=== PATIENT | male | born 1990 | race Caucasian/White ===

== ENCOUNTER 2017-04-30 15:22 | Inpatient (IN) | payer MEDICAID ==
[~2017-04-30] VITALS: Ht 172.7 cm; Wt 95.5 kg
--- NOTE | 2017-04-30 15:40 | ED.REPORT ---
HPI-General Illness Date of Service Apr 30, 2017 ED Provider: Dr. Collazo Pt is a 26 year old male with a hx of Bipolar and Schizophrenia and presenting to the ED via law enforcement for a mental health evaluation. His parents report that he is paranoid, and has been drinking his own urine. When his father inquired about this, the pt stated that it was tea. Pt denies any suicidal or homicidal ideation or visual or auditory hallucinations. Pt states that today was just a normal day. He was trying to make an appointment to get his shot for eczema and states that his father was giving false information to the doctor on the phone and the pt got nervous so he went to the store and got a drink. His parents report that he has not been taking his antipsychotic medications. Nursing Notes Stated Complaint: DELUSIONAL Chief Complaint: Delusional Nursing Notes Reviewed: Yes Allergies: Coded Allergies: haloperidol (Verified Allergy, Unknown, 04/30/17) "when I wake up it makes me blind" General Time Seen by MD: 15:39 Chief Complaint Other (Mental health evaluation) Hx Obtained From: Patient, Other family... (Mother, Father) Arrived By: Police Sudden in Onset?: Yes Symptom Duration: Since onset Severity: Current: No pain currently Severity: Maximum: No pain Recent Healthcare: No recent doctor visit, No recent hospitalization Similar Sx Previous: No Past Medical History Past Medical History Eczema Bipolar Schizophrenia Past Surgical History denies Smoking History Unknown if Ever Smoker Ambulatory Status Independent Review of Systems Unable to Obtain ROS Mental status Full Review of Systems Psychiatric: Reports: Delusional, Denies: Hallucinations, auditory, Hallucinations, visual, Homicidal ideation , Suicidal ideation Physical Exam Nursing note and vitals reviewed. Constitutional: Well-developed, well-nourished. Not diaphoretic. Head: Normocephalic and atraumatic. Mouth/Throat: Oropharynx is clear and moist. No oropharyngeal exudate. Eyes: EOM are normal. Pupils are equal, round, and reactive to light. Neck: Supple, no tracheal deviation. Cardiovascular: Normal rate, regular rhythm. Equal and intact distal pulses throughout. Pulmonary/Chest: Effort normal and breath sounds normal. No respiratory distress. Abdominal: Soft. No distension. There is no tenderness, rebound, or guarding. Bowel sounds present. Musculoskeletal: Range of motion grossly intact, moving all extremities. No edema or tenderness appreciated. Neurological: AOx3. Grossly nonfocal exam. Strength and sensation intact and equal to bilateral upper and lower extremities. Skin: Warm and dry. Well healed excoriations around chest. Psychiatric: Not suicidal or homicidal. No auditory or visual hallucinations. Vital Signs Vital Signs Date Time Temp Pulse Resp B/P Pulse Ox O2 Delivery O2 Flow Rate FiO2 04/30/17 19:05 115 14 134/107 100 Room Air 04/30/17 15:53 125 18 150/94 98 Room Air Initial VS: Reviewed Interpretation & Diagnostics Lab Results Interpretation Result Diagram: 04/30/17 1612 04/30/17 1612 Test 04/30/17 16:12 04/30/17 16:20 White Blood Count 7.5th/mm3 (3.8-10.1) Red Blood Count 4.81mil/mm3 (4.40-5.80) Hemoglobin 15.1g/dL (13.8-17.2) Hematocrit 44.1% (41.0-50.0) Mean Corpuscular Volume 91.7fL (81-100) Mean Corpuscular Hemoglobin 31.4pg (27.0-35.0) Mean Corpuscular Hemoglobin Concent 34.2% (32.0-37.0) Red Cell Distribution Width 13.5% (12.3-15.4) Platelet Count 197bil/L (150-400) Neutrophils (%) (Auto) 61.0% (40-74) Lymphocytes (%) (Auto) 21.6% (14-46) Monocytes (%) (Auto) 13.4% (4-12) Eosinophils (%) (Auto) 2.8% (0-5) Basophils (%) (Auto) 0.9% (0-3) Sodium Level 140mEq/L (134-144) Potassium Level 3.7mEq/L (3.5-5.2) Chloride Level 102mEq/L (97-108) Carbon Dioxide Level 21mmol/L (18-29) Blood Urea Nitrogen 5mg/dL (6-20) Creatinine 0.77mg/dL (0.76-1.27) Estimat Glomerular Filtration Rate 131mL/min (>59) Glucose Level 107mg/dL (60-99) Calcium Level 9.6mg/dL (8.5-10.1) Total Bilirubin 0.4mg/dL (0.0-1.2) Aspartate Amino Transf (AST/SGOT) 26U/L (0-50) Alanine Aminotransferase (ALT/SGPT) 26U/L (0-44) Alkaline Phosphatase 59U/L (25-150) Total Protein 7.5g/dL (6.4-8.4) Albumin 4.5g/dL (3.4-5.0) Thyroid Stimulating Hormone (TSH) 1.580uIU/mL (0.450-4.500) Hold Urine Received (Received) Re-Eval/Medical Decision Med Decision/Clinical Course 26-year-old male presenting to the ED with bizarre behavior, concern for acute psychosis. Currently hemodynamically stable with no somatic complaints. Laboratory studies reviewed; no obvious abnormality that would account for his current presentation. After discussion with the mental health workers, decision was made to admit the patient for further management and evaluation. Time of Eval: 17:59 Patient Status: Condition improved Re-Evaluation/Progress Note: Discussed plan for admission. Consultation : Call Returned at: 21:51 Proof Reader: Will see patient, Agrees with plan, Accepts admit Note: [facility] organized admission to the hospital. Counseled Regarding: Diagnosis, Lab results, Need for admission Discharge & Departure Primary Impression: Acute psychosis Disposition: ADMITTED TO HOSPITAL Discharge Condition All VS Reviewed: Yes Condition: Improved Scribe Attestation Portions of this note were transcribed by Piotr Collins. I, Dr. Collazo personally performed the history, physical exam and medical decision-making; I reviewed and confirmed the accuracy of the information in the transcribed note. Signed by: Srinivas Woodson, 04/30/2017 at 2230. Kash Collazo MD Apr 30, 2017 15:40 PIOTR COLLINS Apr 30, 2017 17:31
[2017-04-30 15:53] VITALS: BP 150/94; PULSE 125; RESP 18; O2SAT 98
[2017-04-30 16:27] LABS: BASOPHILS % (AUTO) 0.9 % (0-3); EOSINOPHILS % (AUTO) 2.8 % (0-5); MONOCYTES % (AUTO) 13.4 % (4-12); Mean Corpuscular Hemoglobin 31.4 pg (27.0-35.0); Mean Corpuscular Volume 91.7 fL (81-100); Platelet Count 197 bil/L (150-400)
[2017-04-30 19:05] VITALS: BP 134/107; PULSE 115; RESP 14; O2SAT 100
[2017-04-30] MEDS ORDERED: LORazepam 2 mg Tablet PO ONE (21:55)
[2017-04-30] MEDS ORDERED: OLANZapine Zydis ODT 5 mg Tablet ONE (22:11)
[2017-04-30] MEDS ORDERED: OLANZapine Zydis ODT 5 mg Tablet PO ONE (22:15)
[2017-04-30] MEDS ORDERED: OLANZapine Zydis ODT 5 mg Tablet PO SCH (22:20)
[2017-04-30] MEDS ORDERED: OLANZapine Zydis ODT 5 mg Tablet PO PRN (22:20)
[2017-04-30] MEDS ORDERED: Magnesium Hydroxide 10 mL Oral Concentration PO PRN (22:20)
[2017-04-30] MEDS ORDERED: Alum-Mag Hydrox-Simeth 30 mL Suspension PO PRN (22:20)
[2017-04-30] MEDS ORDERED: LORazepam 2 mg Tablet PO PRN (22:20)
[2017-04-30] MEDS ORDERED: Benzocaine-Menthol Lozenge 2/Pkg PO PRN (22:20)
--- NOTE | 2017-04-30 22:45 | NUR ---
Nurses Admission Note 26 year old involuntary male brought to the ER by police due to increasing paranoia at home believing his father was poisoning his food and medications. Patient has lost approximately 30lbs, has not been sleeping or bathing. Patient has had several previous psychiatric hospitalizations in [facility],has been followed by [facility] locally and has been taking Risperdal injections biweekly. Patient arrived on the unit confused,anxious and tremulous. He had received IM Zyprexa 10mg and Ativan 2 mg in the ER after refusing PO. Patient believed his neck rash was caused by eating "ramen noodles". Patients' thoughts were scattered,tangential initially but later stated he did well with a Risperdal injections "that is why I was afraid of the other shots." Patient changed into scrubs and retired to bed. Patient will sign paperwork in the am. He will be monitored q 15min. checks for safety and support.
--- NOTE | 2017-05-01 03:12 | NUR ---
ADMIT NOC OBS [id number] Pt arrived from our ER and changed into scrubs. He requested to go to bed and wait until morning to sign paperwork. Asleep 2330. Observed Q15 as ordered.
--- NOTE | 2017-05-01 04:15 | NUR ---
Night [id number] Assumed care of pt at 2315 after admission. Pt appears to be sleeping in bed without s/sx of distress and has no behavioral issues noted at this time. Continues to monitor for mood changes, emotional well being, and q15min. Care continues.
[2017-05-01 10:17] VITALS: BP 126/78; PULSE 126; RESP 18
--- NOTE | 2017-05-01 12:39 | NUR ---
[facility] Day Shift Pt maintained behavioral control throughout the shift. Pt affect appears mostly flat, somewhat brighter when engaged with staff and peers. Pt appears internally preoccupied, often appearing unfocused and distracted during conversations. Pt spends most of the shift wandering the unit and occasionally resting in his room. Pt is appropriate with staff and peers when active on the unit, but is not social. Pt attended community meeting in the AM and participated lightly in AM group activity. Pt has attended all meals at this time and has eaten approx 80% of all meals.
--- NOTE | 2017-05-01 13:11 | NUR ---
nursing note dayshift S)"I feel like a zombi what ever medication I got last night" A) good eye contact, desired to know how and when he can be discharged, "I will take my medication" "I only like shots it is what works for me" out in milieu most of shift, ate meals dressed in scrubs, no complaints, minimal interaction with others, pleasant and cooperative on approach A) no delusional behavior noted, pleasant cooperative P) monitor behavior and encourage participation in treatment
[2017-05-01] MEDS ORDERED: LORazepam 1 mg Tablet PO PRN (15:20)
--- NOTE | 2017-05-01 16:11 | HP ---
[address] [address] HISTORY AND PHYSICAL PATIENT: LULU SMITH : 1990 MR#: [id number] ADMIT: 04/30/2017 JOB ID: [id number] IDENTIFICATION: Client is a 26-year-old white male with reported history of bipolar mood disorder with psychosis. He is reportedly living with his father and his father's girlfriend for the past year and a half. Prior to that he was living with his biological mother in [facility]. Client reports he is on disability and lives in [place]. REASON FOR ADMISSION: Client reports "I was tricked." Hospital reports that the client had been off of his IM neuroleptic for months and was having increasing threatening behaviors, delusions and disorganization. HISTORY OF PRESENT ILLNESS: The patient presents today on a 72 hour involuntary treatment hold from the emergency department for evaluation and treatment of psychosis. I met with him for a 60 minute evaluation and reviewed course and records kept by [facility]. Client's main issue is psychosis. The condition has reportedly been present for several years and at present is of a severe intensity manifesting with paranoid delusions, flight of ideas, poor insight and threatening behaviors. It was reportedly made worse by client not taking his bimonthly shot of Risperdal Consta since September 2016. Since that time, he has apparently been having a slow but gradual recurrence of an acute psychotic episode. It also appears to be made worse by interpersonal relationship conflicts. He currently describes his active conflicts between his father and his father's girlfriend. He reports that the symptoms are improved when he takes Risperdal on a regular basis. He is currently presenting with signs of marked impairment in reality testing, judgment, insight and coping. Cognitively he appears to be intact. He is having a very difficult time with impulse control. Client categorically denied psychiatric review of systems or physical review of systems. However, the client is here in an involuntary basis and believes that anything he says can and will be used against him in a court of law. As a result, he is a very poor historian. PAST MEDICAL HISTORY: Client states he takes Risperdal Consta. Did not know the dose, two times per month, last in September. ALLERGIES: 1. HALDOL. He states he wakes up blind. 2. SEROQUEL and ABILIFY. He states he tends to get tremors, sweating and nausea. ILLNESSES: 1. Asthma. 2. Eczema. FAMILY MEDICAL HISTORY: Client refused. PAST PSYCHIATRIC HISTORY: Client refused. PSYCHOSOCIAL HISTORY: Client refused. The client refused to share client's information about trauma, substance abuse, lethality, relationship or legal history. He would not give us his father's name and number and there was no way we could collaborate information at this time. VITAL SIGNS: 126/78, respirations 18, pulse 126. Physical exam reviewed from the ED and essentially normal. LABORATORIES: CBC, liver, electrolytes, thyroid normal. UDS positive for THC. MENTAL STATUS EXAMINATION: Client neatly dressed. He had poor eye contact and appeared quite tense. His behavior was withdrawn. His attitude was suspicious, guarded and withholding. Speech was normal rate and rhythm. Mood was suspicious. Affect congruent with high intensity. Thought process: Client was either unwilling or unable to relate a coherent history. He did not appear to be responding to internal stimuli but did have flight of ideas. His thought process was markedly concrete with black and white thinking. Thought content: Themes for paranoia and persecution. He believes his father may be poisoning him. He described what sounds like olfactory hallucinations complaining of cigarettes smelling like urine, medications smelling odd and boots smelling like coffee. He denied suicidal or homicidal ideation. He had denied auditory hallucinations. He is alert and oriented to person, place and date. Memory and attention unable to assess due to non participation. Insight and judgment poor. Impulse control highly contained, yet rigid, as having a difficult time handling impulses of fear. Reality testing is markedly impaired. Competence to handle stress is currently markedly impaired. IMPRESSION: The patient is a 26-year-old white male, who was admitted on a 72 hour involuntary treatment hold after his father brought him to the emergency department for an evaluation. He apparently been off his Risperdal Consta for several months. He reported to have a history of bipolar mood disorder with psychosis that appears to have been gradually manifesting itself as he has been off his medications. In addition to stopping his medications, he also has been ingesting THC which is also likely contributing to the current paranoia, delusion and disorganized thought. Client is not willing to share information or give us information to contact family at this point. As a consequence I have little understanding of the psychology or social situation. DIAGNOSIS: AXIS I Schizoaffective disorder. AXIS II Defer. AXIS III None. AXIS IV Unknown. AXIS V Current global assessment of functioning equal to 30. PLAN: Recommend client be admitted to our unit and be provided with a high degree of safety through the structure and active adult engagement he will receive here. Will have him participate in one-to-one unit and group activities focused on improving coping skills, reality based thinking and coming up with a safety plan and treatment plan should psychosis return as an outpatient. Client is on a 72 hour involuntary treatment hold. He will have a chance to talk with his enamel burner in the morning and the hand tube winder on Saturday. At this point, given the intensity of the symptoms and the lack of information, I will pursue a 14 day involuntary treatment hold. Will attempt to contact the family and previous treatment facilities for more information as soon as were able to identify these.
--- NOTE | 2017-05-01 18:39 | NUR ---
Nurses Note Evening "I would like to go home Saturday." Patient had been sleeping most of the evening until after dinner. He refused dinner stating he usually eats oatmeal as an evening meal and accepted juices and cheese with apple sauce.Patient denied troubled thoughts,voices or feelings of self harm. He is receptive to PO Risperdal until he receives Risperdal Consta IM. Patient talked about problems with his father and his girlfriend especially when they drink. Patient would like to investigate other living arrangements when he leaves here,note given to transplant case manager. Will maintain q 15min. checks for safety and support. Addendum: 05/01/17 at 1853 by DEANNE DYKES RN Amended: Links added. Addendum: 05/01/17 at 2210 by DEANNE DYKES RN Nurses Note Evening Patient requested his HS medication at 1930 of Risperdal 4 mg. He attended wrap-up and while standing fainted in the dining room. Vital signs taken while sitting on bed. JR=417/64,114.sitting,and upon standing he fainted again. Patient was resistive to drinking fluids.Had to be strongly encouraged to do so. He reluctantly drank a 240cc of water from the bathroom sink. Patient remains guarded and paranoid regarding food and fluids, had only minimal amounts of both today and no dinner.FC=483 BP=98/62,P=109 Lying, QI=237/67,P=122 sitting, no recorded BP on automatic machine while standing with a pulse spyz=720. An EKG 12 lead was done resulting in sinus tachycardia as well as a nursery helper which showed HR in the 150's with ambulation but rebounded to the 80's within a minute. Patient drank additional 474cc of soda and remained cooperative but felt he was getting too much attention and "just want to sleep." Will maintain q 15min. checks for safety and support,encouraged patient to use call nix if toileting tonight. notified of above.
[2017-05-01] MEDS: risperiDONE 2 mg Tablet PO SCH (19:32)
--- NOTE | 2017-05-01 20:01 | NUR ---
manager food beverage/Counselor: S: "I don't want to give any information." O: Patient slept 6.5 hours last night per staff. Patient denies S/I and H/I. He denies auditory and visual hallucinations. Patient would not provide any additional information due to "waiting for the 72 hours to be done first." A: Patient is uncooperative, guarded, suspicious, paranoid, withdrawn, poor insight, poor judgment. P: Follow care plan, coordinate with out-patient providers.
--- NOTE | 2017-05-02 05:23 | NUR ---
aerospace assembler [id number] Assumed care of patient at 2300 with pt appearing asleep in bed without s/sx of distress. Pt had no bizarre or behavioral issues noted at this time. Continue to monitor for mood changes, emotional well being, and q15min checks for safety. Care continues.
--- NOTE | 2017-05-02 12:34 | NUR ---
nursing note day shift A) pt would not jason this literary writer permission to come into room, jumped from bed and ran to doorway when I knocked, I asked if he was dizzy getting up so fast " I am keeping that info to myself" though appeared steady, guarded, refused extra fluids " I only drink right before my meals" "I already drank extra water today" briefly out in milieu, ate meals, did attend community meeting but gave guarded responses A) paranoid, guarded, cooperative P) monitor medication effectiveness and encourage participation in treatment
--- NOTE | 2017-05-02 12:46 | PCM.PNPSY ---
Subjective Date of Service May 02, 2017 Subjective I spent 30 minutes both reviewing treatment plan with our clinical team, interviewing the patient and providing supportive/educational psychotherapy. I spent more than 50% of the time counseling the patient. I reviewed the treatment plan with the him and discussed options available including the potential risks, benefits and side effects. Maicol reports a marked improvement in thought organization and mood stability. Staff reports that he has been isolating and appearing quite paranoid. He has been participating poorly in one-to-one unit and group activities. He slept 8 hours and denies depression kong or psychotic symptoms review. He denies suicidal ideation or homicidal ideation and states there is just been a big misunderstanding. He denies medication side effects today. Last night he experienced a period of hypotension after taking 4 mg of Risperdal. He believed that he was dehydrated. We talked about decreasing the dose to 3 mg at in the evening and he agreed. He was able to identify his medications and what they were used to treat. Current Medications Current Medications Lorazepam 2 mg ONCE ONCE IM Last administered on 04/30/17 22:55; Admin Dose 2 MG; Start 04/30/17 at 22:30; Stop 04/30/17 at 22:31; Status DC Olanzapine 10 mg ONCE ONCE IM Last administered on 04/30/17 22:55; Admin Dose 10 MG; Start 04/30/17 at 22:30; Stop 04/30/17 at 22:31; Status DC Risperidone 4 mg HS PO Last administered on 05/01/17 19:32; Admin Dose 4 MG; Start 05/01/17 at 21:00 Mental Status Exam Appearance: Neat/well groomed Attitude: Guarded Behavior: Overtly anxious Affect: Restricted, Blunted, Flat Mood: Fearful Thought Process/Associations: Other (poverty of thought) Speech Production: Soft Speech Rate: Normal Speech Articulation: Normal Thought Content: Negativistic, Ideas of Reference, Perseveration Danger to Self/Suicidal Ideati: None Danger to Others: None Delusions: Paranoid (Endorses) Hallucinations: Other (patient a poor historian and is not telling us what he is experiencing internally) Consciousness: Hyper-vigilant Orientation: Person, Place, Date, Situation Memory: Grossly Intact Estimate Intellectual Function: Below Average Basis for IQ estimate: Awareness current events, Word use/vocabulary, Educational history Attention/Concentration & Cogn: Impaired Cognitive Testing Method: Abstract Reasoning during interview, Proverb interpretation, Serial computations Insight: Limited Judgement: Limited Result Diagram: 04/30/17 1612 04/30/17 1612 Mental Health Plan The patient is a 26-year-old white male, who was admitted on a 72 hour involuntary treatment hold after his father brought him to the emergency department for an evaluation. He apparently had been off his Risperdal Consta for several months. He is reported to have a history of bipolar mood disorder with psychosis that appears to have been gradually manifesting itself as he has been off his medications. In addition to stopping his medications, he also has been ingesting THC which is also likely contributing to the current paranoia, delusion and disorganized thought. Client is not willing to share information or give us information to contact family at this point. As a consequence I have little understanding of the psychology or social situation. [place] DIAGNOSIS: AXIS I Schizoaffective disorder. AXIS II Defer. AXIS III None. AXIS IV Unknown. AXIS V Current global assessment of functioning equal to 30. Medications Treatments Patient is being provided with a high degree of safety through our unit structure and active adult engagement provided by our mental health professionals, mental health technicians, psychiatric nurses and myself. We are focusing on developing improved coping skills and identifying stressors that may have led to current episode. We will attempt to: * Integrate into therapeutic groups, milieu and individual therapy. * Maintain in a closely monitored and structured unit * Provide low-stimulation environment * Obtain collateral data to assist in treatment planning * Assess degree of lability of affect and impulse control * Complete safety plan * Decrease frequency of relapse and need for re-hospitalization * Denies thoughts of harm to self and/or others * Establish a consistent sleep pattern * Medication effective in stabilization of mood and/or thought process * Reduce the risk of imminent harm to self and/or others by providing a safe environment * Tolerates medication without side effects Patient will be on the following psychiatric medications: Change Risperdal to 3 mg at bedtime Education: Educate patient about recreational drug use as an etiology Educate about metabolic etiologies related to obesity Patient's legal status Patient is on a 72 hour involuntary treatment hold. Patient will be given the opportunity to talk to her tipple operator and the treer Saturday Anticipated number of hospital days to achieve above goals: 14 Disposition: Home Alex Robles MD May 02, 2017 12:45
[2017-05-02 16:04] VITALS: BP 103/65; PULSE 123; RESP 16
[2017-05-02] MEDS: risperiDONE 2 mg Tablet PO SCH (19:16)
--- NOTE | 2017-05-02 21:54 | NUR ---
Nursing Noc Pt received scheduled Risperdal at 191, offered prn Ativan and Ambien but patient refused stating he has had all his meds. Medications wasted with SANDY Calderon per routine.
--- NOTE | 2017-05-03 02:14 | NUR ---
Observations 1900 to 0700 Pt did not attend wrap up group. Pt ate a snack. Pt does not interact with peers. Pt stands around staring into nurses station and when staff contact pt behaves bizarrely. Pt appears extremely paranoid. Pt maintained behavioral control. Pt appeared asleep at 0200. Pt respirations were observed when asleep. Staff completed 15 min close observations as ordered.
--- NOTE | 2017-05-03 05:09 | NUR ---
Nursing Noc Pt thoughts appear very paranoid and tangential. Noted to ask for something then not want to accept it. Pt refusing any PRNs but was willing to accept prescribed medication. Pt confused as to time. Noted to believe it was day time while it is clearly dark on unit and outside windows. Pt making requests for different snack with an inappropriate level of urgency. Continuing to monitor mood behavior and emotional state. CP
--- NOTE | 2017-05-03 11:12 | NUR ---
Nursing Note [id number] Behavior S/O: Pt out in milieu most of the day. Pleasant with staff & peers. Conversation clear & organized but brief & superficial. Eye contact is poor. Pt seen staring into space frequently. Pt attempted to play a game with peer, but unexpectedly put game away in the middle. Pt in court this morning. He interrupted the shank faker several times, but was easily redirected. He has been continued on a 72 hour hold until Sunday, May 07, 2017. A: Pt appears to be internally preoccupied. P: Provide supportive environment. Monitor medications & effects.
--- NOTE | 2017-05-03 13:21 | PCM.PNPSY ---
Subjective Date of Service May 03, 2017 Subjective I spent 30 minutes both reviewing treatment plan with our clinical team, interviewing the patient and providing supportive/educational psychotherapy. I spent more than 50% of the time counseling the patient. I reviewed the treatment plan with the him and discussed options available including the potential risks, benefits and side effects. Maicol reports feeling less paranoid and feels safe here on the unit. Staff reports that he has been isolating but state that he appears less paranoid. He has been participating poorly in one-to-one unit and group activities. He slept 2 hours at night but took multiple naps during the day and denies depression kong or psychotic symptoms review. He denies suicidal ideation or homicidal ideation and states there is just been a big misunderstanding. He denies medication side effects today. He was able to identify his medications and what they were used to treat. Current Medications Current Medications Risperidone 4 mg HS PO Last administered on 05/02/17t 19:16; Admin Dose 4 MG; Start 05/01/17 at 21:00 Mental Status Exam Appearance: Neat/well groomed Attitude: Guarded Behavior: No unusual behavior Affect: Restricted, Blunted, Flat Mood: Dysthymic Thought Process/Associations: Logical/Sequential, Goal Directed Speech Production: Soft Speech Rate: Normal Speech Articulation: Normal Thought Content: Negativistic, Ideas of Reference Danger to Self/Suicidal Ideati: None Danger to Others: None Delusions: Paranoid (Endorses) Hallucinations: Other (patient a poor historian and is not telling us what he is experiencing internally) Consciousness: Hyper-vigilant Orientation: Person, Place, Date, Situation Memory: Grossly Intact Estimate Intellectual Function: Below Average Basis for IQ estimate: Awareness current events, Word use/vocabulary, Educational history Attention/Concentration & Cogn: Impaired Cognitive Testing Method: Abstract Reasoning during interview, Proverb interpretation, Serial computations Insight: Limited Judgement: Limited Result Diagram: 04/30/17 1612 04/30/17 1612 Mental Health Plan The patient is a 26-year-old white male, who was admitted on a 72 hour involuntary treatment hold after his father brought him to the emergency department for an evaluation. He apparently had been off his Risperdal Consta for several months. He is reported to have a history of bipolar mood disorder with psychosis that appears to have been gradually manifesting itself as he has been off his medications. In addition to stopping his medications, he also has been ingesting THC which is also likely contributing to the current paranoia, delusion and disorganized thought. Client is not willing to share information or give us information to contact family at this point. As a consequence I have little understanding of the psychology or social situation. Today he showed a marked decrease in anxiety and paranoia. He was much more Open and engaged in our conversation [place] DIAGNOSIS: AXIS I Schizoaffective disorder. AXIS II Defer. AXIS III None. AXIS IV Unknown. AXIS V Current global assessment of functioning equal to 35. Medications Treatments Patient is being provided with a high degree of safety through our unit structure and active adult engagement provided by our mental health professionals, mental health technicians, psychiatric nurses and myself. We are focusing on developing improved coping skills and identifying stressors that may have led to current episode. We will attempt to: * Integrate into therapeutic groups, milieu and individual therapy. * Maintain in a closely monitored and structured unit * Provide low-stimulation environment * Obtain collateral data to assist in treatment planning * Assess degree of lability of affect and impulse control * Complete safety plan * Decrease frequency of relapse and need for re-hospitalization * Denies thoughts of harm to self and/or others * Establish a consistent sleep pattern * Medication effective in stabilization of mood and/or thought process * Reduce the risk of imminent harm to self and/or others by providing a safe environment * Tolerates medication without side effects Patient will be on the following psychiatric medications: Risperdal to 3 mg at bedtime Education: Educate patient about recreational drug use as an etiology Educate about metabolic etiologies related to obesity Patient's legal status Patient is on a 72 hour involuntary treatment hold. The hearing was deferred until next Saturday. Anticipated number of hospital days to achieve above goals: 4 Disposition: Home Alex Robles MD May 03, 2017 13:21
--- NOTE | 2017-05-03 18:30 | NUR ---
[facility] Day Shift Pt maintained behavioral control throughout the shift. Pt affect appears mostly flat, somewhat brighter when engaged with staff and peers. Pt appears internally preoccupied, often appearing unfocused and distracted during conversations. Pt appears more distracted and paranoid this shift. Pt spends most of the shift wandering the unit and occasionally resting in his room. Pt is appropriate with staff and peers when active on the unit, but is not social. Pt did not attend afternoon group activity. Pt has attended all meals at this time and has eaten approx 100% of all meals.
[2017-05-03 19:00] VITALS: BP 113/68; PULSE 140; RESP 18
[2017-05-03] MEDS: risperiDONE 2 mg Tablet PO SCH (20:12)
--- NOTE | 2017-05-03 20:13 | NUR ---
equipment manager/Counselor: S: "I don't want to talk about my personal stuff." O: Patient only slept 2 hours last night per staff. Patient denies S/I and H/I. He denies auditory and visual hallucinations. Patient would not provide any additional information. A: Patient is uncooperative, guarded, suspicious, paranoid, restricted affect, limited insight, limited judgment. P: Follow care plan, coordinate with out-patient providers.
--- NOTE | 2017-05-03 20:38 | NUR ---
NURSING NOTE [id number] Mood: "ordinary" Affect: paranoid, guarded Behavior: isolating to his room this shift, in bed. Pt. declined to eat dinner this evening and stated "I prefer to only eat 2 meals a day." He did ask to drink orange juice X 2 (240 mls consumed) and ate a cheese stick. When asked if he is feeling paranoid about eating the food here he abruptly stated: "I don't want to talk about it". He was med compliant tonight. Thought processes: pt. stated "I don't want to talk too much" when asked about his thought content. He denied AH/VH/SI/HI but some of his mannerisms are bizarre and his comments indicate he is paranoid and could be responding to internal stimuli. Pt. made a comment about the food here being "laced with chloroform" and laughed nervously when this movie writer provided reassurance, stating "I guess I was just kidding, haha", then put both of his hands around his throat as if to simulate choking and laughed again. Pt's speech is slightly pressured and stilted.
--- NOTE | 2017-05-04 06:18 | NUR ---
Night [id number] Pt did not participate in wrap up group, but took all meds without issues noted. Pt continues with paranoia and did not snack;however, he requested orange juice and thanked staff for it. Pt slept 6hrs interrupted without s/sx of distress. Continue to monitor for mood changes, emotional wellbeing, and q15min checks for safety. Care continues.
--- NOTE | 2017-05-04 12:33 | NUR ---
Behavior Pt "edgy" today. When I checked on him in his room, he answered the door and stated, "hold on let me put water on my face"... then states, "Is it time for my Risperadol shot?" Adv pt I was just checking on him and asked if he needed anything. Pt noted to have packing in his left ear and packing in his right nostril. Pt states he had an ear infection and that's why he has packing in ear. He states he was bleeding this morning and that's why packing was in. Appropriate with other pts. Care ongoing. Addendum: 05/04/17 at 3818 by JOURDAN SANCHEZ RN This afternoon patient pacing up and down halls. Still remains withdrawn and skeptical. He did request Prune juice as he stated his stomach hurt after eating turkey sandwhich at lunch. Prune juice handed to him, but he just looked at it and asked if we can put it in the fridge for him. Care ongoing.
--- NOTE | 2017-05-04 13:08 | PCM.PNPSY ---
Subjective Date of Service May 04, 2017 Subjective I spent 30 minutes both reviewing treatment plan with our clinical team, interviewing the patient and providing supportive/educational psychotherapy. I spent more than 50% of the time counseling the patient. I reviewed the treatment plan with the him and discussed options available including the potential risks, benefits and side effects. Maicol reports feeling less paranoid and feels safe here on the unit. Staff reports that he has been isolating but state that he appears less paranoid. He has been participating poorly in one-to-one unit and group activities. He slept 6 hours at night but took multiple naps during the day and denies depression kong or psychotic symptoms review. He denies suicidal ideation or homicidal ideation and states there is just been a big misunderstanding. He denies medication side effects today. He was able to identify his medications and what they were used to treat. Mental Status Exam Appearance: Neat/well groomed Attitude: Guarded Behavior: No unusual behavior Affect: Restricted, Blunted, Flat Mood: Dysthymic Thought Process/Associations: Logical/Sequential, Goal Directed Speech Production: Soft Speech Rate: Normal Speech Articulation: Normal Thought Content: Negativistic, Ideas of Reference Danger to Self/Suicidal Ideati: None Danger to Others: None Delusions: Paranoid (Endorses) Hallucinations: Other (patient a poor historian and is not telling us what he is experiencing internally) Consciousness: Hyper-vigilant Orientation: Person, Place, Date, Situation Memory: Grossly Intact Estimate Intellectual Function: Below Average Basis for IQ estimate: Awareness current events, Word use/vocabulary, Educational history Attention/Concentration & Cogn: Impaired Cognitive Testing Method: Abstract Reasoning during interview, Proverb interpretation, Serial computations Insight: Limited Judgement: Limited Result Diagram: 04/30/17 1612 04/30/17 1612 Mental Health Plan The patient is a 26-year-old white male, who was admitted on a 72 hour involuntary treatment hold after his father brought him to the emergency department for an evaluation. He apparently had been off his Risperdal Consta for several months. He is reported to have a history of bipolar mood disorder with psychosis that appears to have been gradually manifesting itself as he has been off his medications. In addition to stopping his medications, he also has been ingesting THC which is also likely contributing to the current paranoia, delusion and disorganized thought. Client is not willing to share information or give us information to contact family at this point. As a consequence I have little understanding of the psychology or social situation. Today he showed a marked decrease in anxiety and paranoia. He was much more Open and engaged in our conversation. He appears to be showing gradual but steady improvement. [place] DIAGNOSIS: AXIS I Schizoaffective disorder. AXIS II Defer. AXIS III None. AXIS IV Unknown. AXIS V Current global assessment of functioning equal to 35. Medications Treatments Patient is being provided with a high degree of safety through our unit structure and active adult engagement provided by our mental health professionals, mental health technicians, psychiatric nurses and myself. We are focusing on developing improved coping skills and identifying stressors that may have led to current episode. We will attempt to: * Integrate into therapeutic groups, milieu and individual therapy. * Maintain in a closely monitored and structured unit * Provide low-stimulation environment * Obtain collateral data to assist in treatment planning * Assess degree of lability of affect and impulse control * Complete safety plan * Decrease frequency of relapse and need for re-hospitalization * Denies thoughts of harm to self and/or others * Establish a consistent sleep pattern * Medication effective in stabilization of mood and/or thought process * Reduce the risk of imminent harm to self and/or others by providing a safe environment * Tolerates medication without side effects Patient will be on the following psychiatric medications: Risperdal to 3 mg at bedtime Education: Educate patient about recreational drug use as an etiology Educate about metabolic etiologies related to obesity Patient's legal status Patient is on a 72 hour involuntary treatment hold. The hearing was deferred until next Saturday. Anticipated number of hospital days to achieve above goals: 3 Disposition: Home Alex Robles MD May 04, 2017 13:08
--- NOTE | 2017-05-04 14:22 | NUR ---
Pitch Worker/Counselor S:"I don't understand what you mean." O:Patient appeared confused at questions, and did not respond when asked about SI, HI, AVH, anxiety or depression. A:Patient was confused about questions and has been wandering the unit all day. He continues to carry all his paperwork with him, and has tissue stuffed up one nostril. He avoids eye contact. He is paranoid and suspicious, with restricted affect. P: Follow care plan and coordinate with outpatient providers.
[2017-05-04] MEDS: risperiDONE 2 mg Tablet PO SCH (19:43)
--- NOTE | 2017-05-04 22:22 | NUR ---
SHAHID 4 hour shift PT very restless for about 1 hour this shahid from [id number]. PT requesting his risperidone early. PT was notably anxious, but is paranoid about meds and refuses to take anything except risperidone. Currently pt is sleeping. Will continue with current POC and monitor for any A/R.
--- NOTE | 2017-05-05 06:11 | NUR ---
Sleep Broken sleep of 6 hours. Pt requested and received orange juice x 2. Pt pleasant upon interaction with staff.
--- NOTE | 2017-05-05 11:18 | PCM.PNPSY ---
Subjective Date of Service May 05, 2017 Subjective I spent 30 minutes both reviewing treatment plan with our clinical team, interviewing the patient and providing supportive/educational psychotherapy. I spent more than 50% of the time counseling the patient. I reviewed the treatment plan with the him and discussed options available including the potential risks, benefits and side effects. Maicol reports feeling less paranoid and feels safe here on the unit. Staff reports that he has been isolating but state that he appears less paranoid. Even though he has improved his paranoia rate remains at a relatively high level. For the first time today he laughed and was able to joke with me. He has been participating poorly in one-to-one unit and group activities. He slept 6 hours at night but took multiple naps during the day and denies depression kong or psychotic symptoms review. He denies suicidal ideation or homicidal ideation and states there is just been a big misunderstanding. He denies medication side effects today. He was able to identify his medications and what they were used to treat. Mental Status Exam Appearance: Neat/well groomed Attitude: Guarded Behavior: No unusual behavior Affect: Flat Mood: Dysthymic Thought Process/Associations: Logical/Sequential, Goal Directed Speech Production: Soft Speech Rate: Normal Speech Articulation: Normal Thought Content: Negativistic, Ideas of Reference Danger to Self/Suicidal Ideati: None Danger to Others: None Delusions: Paranoid (Endorses) Hallucinations: Other (patient a poor historian and is not telling us what he is experiencing internally) Consciousness: Hyper-vigilant Orientation: Person, Place, Date, Situation Memory: Grossly Intact Estimate Intellectual Function: Below Average Basis for IQ estimate: Awareness current events, Word use/vocabulary, Educational history Attention/Concentration & Cogn: Impaired Cognitive Testing Method: Abstract Reasoning during interview, Proverb interpretation, Serial computations Insight: Limited Judgement: Limited Result Diagram: 04/30/17 1612 04/30/17 1612 Mental Health Plan The patient is a 26-year-old white male, who was admitted on a 72 hour involuntary treatment hold after his father brought him to the emergency department for an evaluation. He apparently had been off his Risperdal Consta for several months. He is reported to have a history of bipolar mood disorder with psychosis that appears to have been gradually manifesting itself as he has been off his medications. In addition to stopping his medications, he also has been ingesting THC which is also likely contributing to the current paranoia, delusion and disorganized thought. Client is not willing to share information or give us information to contact family at this point. As a consequence I have little understanding of the psychology or social situation. Today he showed a marked decrease in anxiety and paranoia. He was much more Open and engaged in our conversation. He appears to be showing gradual but steady improvement. He was able to make a Star Wars analogy make a joke and smile. He is working on placement outside of his parents home which I believe would be helpful for his mental health long-term. [place] DIAGNOSIS: AXIS I Schizoaffective disorder. AXIS II Defer. AXIS III None. AXIS IV Unknown. AXIS V Current global assessment of functioning equal to 35. Medications Treatments Patient is being provided with a high degree of safety through our unit structure and active adult engagement provided by our mental health professionals, mental health technicians, psychiatric nurses and myself. We are focusing on developing improved coping skills and identifying stressors that may have led to current episode. We will attempt to: * Integrate into therapeutic groups, milieu and individual therapy. * Maintain in a closely monitored and structured unit * Provide low-stimulation environment * Obtain collateral data to assist in treatment planning * Assess degree of lability of affect and impulse control * Complete safety plan * Decrease frequency of relapse and need for re-hospitalization * Denies thoughts of harm to self and/or others * Establish a consistent sleep pattern * Medication effective in stabilization of mood and/or thought process * Reduce the risk of imminent harm to self and/or others by providing a safe environment * Tolerates medication without side effects Patient will be on the following psychiatric medications: Risperdal to 3 mg at bedtime Education: Educate patient about recreational drug use as an etiology Educate about metabolic etiologies related to obesity Patient's legal status Patient is on a 72 hour involuntary treatment hold. The hearing was deferred until next Saturday. Anticipated number of hospital days to achieve above goals: 3 Disposition: Home Alex Robles MD May 05, 2017 11:18
[2017-05-05 12:48] VITALS: BP 99/70; PULSE 157; RESP 16
--- NOTE | 2017-05-05 15:29 | NUR ---
Day shift note S: "I already talked to the doctor, I'm fine" O: Pt. this am sitting in hallway, pacing, appears anxious A: Pt. appeared withdrawn this am; minimal conversation; pacing and sitting throughout hallway; refused any prn medications P: Continue scheduled medications; encouraged expression of feelings/thoughts.
--- NOTE | 2017-05-05 18:25 | NUR ---
[facility] Day Shift Pt maintained behavioral control throughout the shift. Pt affect appears mostly flat, somewhat brighter when engaged with staff and peers. Pt appears internally preoccupied, often appearing unfocused and distracted during conversations. Pt again appears more distracted and paranoid this shift. Pt spends most of the shift wandering the unit and occasionally resting in his room. Pt is appropriate with staff and peers when active on the unit, but is not social. Pt attended community meeting in the AM. Pt did not attend afternoon group activity. Pt has attended all meals at this time and has eaten approx 100% of all meals.
[2017-05-05] MEDS: risperiDONE 2 mg Tablet PO SCH (20:39)
--- NOTE | 2017-05-06 05:20 | NUR ---
Nursing Noc Pt presents internally occupied, suspicious and paranoid. Slightly more interactive with staff, noted to come to nursing station with request for wrap up group, and or need for snacks. No apparent distress. Monitor behavior/emotional state, quality, times and amount of sleep, use and effect of medication.
[2017-05-06 08:02] VITALS: BP 116/76; PULSE 152; RESP 22
--- NOTE | 2017-05-06 12:44 | PCM.PNPSY ---
Subjective Date of Service May 06, 2017 Subjective I spent 30 minutes both reviewing treatment plan with our clinical team, interviewing the patient and providing supportive/educational psychotherapy. I spent more than 50% of the time counseling the patient. I reviewed the treatment plan with the him and discussed options available including the potential risks, benefits and side effects. Maicol reports feeling less paranoid and that he feels safe here on the unit. However Staff reports that he has been isolating but state that he continues to appear paranoid. He is paranoid about the food the water and the people. As a result at times he gets dehydrated because he is afraid to drink the water. He is frequently gives his tray of food to other people were and he only eats food that has been wrapped. He has been participating poorly in one- to-one unit and group activities. He slept 6 hours at night but took multiple naps during the day and denies depression kong or psychotic symptoms review. He denies suicidal ideation or homicidal ideation and states there is just been a big misunderstanding. He denies medication side effects today. He was able to identify his medications and what they were used to treat. Mental Status Exam Vital Signs Vital Signs Date Time Temp Pulse Resp B/P Pulse Ox O2 Delivery O2 Flow Rate FiO2 05/06/17 08:02 35.5 152 22 116/76 Appearance: Neat/well groomed Attitude: Guarded Behavior: No unusual behavior Affect: Flat Mood: Dysthymic Thought Process/Associations: Logical/Sequential, Goal Directed Speech Production: Soft Speech Rate: Normal Speech Articulation: Normal Thought Content: Negativistic, Ideas of Reference Danger to Self/Suicidal Ideati: None Danger to Others: None Delusions: Paranoid (Endorses) Hallucinations: Other (patient a poor historian and is not telling us what he is experiencing internally) Consciousness: Hyper-vigilant Orientation: Person, Place, Date, Situation Memory: Grossly Intact Estimate Intellectual Function: Below Average Basis for IQ estimate: Awareness current events, Word use/vocabulary, Educational history Attention/Concentration & Cogn: Impaired Cognitive Testing Method: Abstract Reasoning during interview, Proverb interpretation, Serial computations Insight: Limited Judgement: Limited Result Diagram: 04/30/17 1612 04/30/17 1612 Mental Health Plan The patient is a 26-year-old white male, who was admitted on a 72 hour involuntary treatment hold after his father brought him to the emergency department for an evaluation. He apparently had been off his Risperdal Consta for several months. He is reported to have a history of bipolar mood disorder with psychosis that appears to have been gradually manifesting itself as he has been off his medications. In addition to stopping his medications, he also has been ingesting THC which is also likely contributing to the current paranoia, delusion and disorganized thought. Client is not willing to share information or give us information to contact family at this point. As a consequence I have little understanding of the psychology or social situation. Maicol continues to struggle with symptoms of paranoia about the food water and other people on the unit. As a result he has a difficult time participating in the therapy. He agreed to I am Risperdal Consta today. We will start that as we continue to treat him with 3 mg of Risperdal at bedtime. Patient will likely need an additional treatment. He goes to court for part of his 14 day hold tomorrow. I will be petitioning the court for an additional 14 days. [place] DIAGNOSIS: AXIS I Schizoaffective disorder. AXIS II Defer. AXIS III None. AXIS IV Unknown. AXIS V Current global assessment of functioning equal to 35. Medications Treatments Patient is being provided with a high degree of safety through our unit structure and active adult engagement provided by our mental health professionals, mental health technicians, psychiatric nurses and myself. We are focusing on developing improved coping skills and identifying stressors that may have led to current episode. We will attempt to: * Integrate into therapeutic groups, milieu and individual therapy. * Maintain in a closely monitored and structured unit * Provide low-stimulation environment * Obtain collateral data to assist in treatment planning * Assess degree of lability of affect and impulse control * Complete safety plan * Decrease frequency of relapse and need for re-hospitalization * Denies thoughts of harm to self and/or others * Establish a consistent sleep pattern * Medication effective in stabilization of mood and/or thought process * Reduce the risk of imminent harm to self and/or others by providing a safe environment * Tolerates medication without side effects Patient will be on the following psychiatric medications: Risperdal to 3 mg at bedtime Risperdal Consta 50 mg IM 2 times per month first dose 05/06/2017 Education: Educate patient about recreational drug use as an etiology Educate about metabolic etiologies related to obesity Patient's legal status Patient is on a 72 hour involuntary treatment hold. The hearing was deferred until next Saturday. Anticipated number of hospital days to achieve above goals: 14 Disposition: Home Alex Robles MD May 06, 2017 12:44
[2017-05-06] MEDS ORDERED: RISPERIDONE IM ONE (12:45)
--- NOTE | 2017-05-06 15:12 | NUR ---
Nursing days Pt continues paranoid, guarded and anxious. Tachycardic but refuses offered prn medication for anxiety stating "I do not want extra medication. I just want to take Risperdal". BP WNL. Pt continues to refuse meals except for turkey sandwiches and orange juice. Minimal interaction with peers or staff. Addendum: 05/06/17 at 1517 by MARY PAYNE RN Received first dose of Risperdal Consta this afternoon.
--- NOTE | 2017-05-06 15:36 | NUR ---
Insulation Manager/Counselor S/O: Patient stated he needed to speak to his dr regarding a shot (Risperdal Consta) of medication. He is confused by questions regarding SI, HI, etc. and does not answer. A: Patient's mother left her phone number (Alice Rees, ), in case staff needs to get a hold of her. Patient has been paranoid and wandering the hallways. Flat and guarded. P:Follow care plan and coordinate with outpatient providers.
--- NOTE | 2017-05-06 17:00 | NUR ---
Observations [id number] Pt very paranoid, pacing unit much of the day clutching paperwork in hand. Pt won't eat the food provided, requesting specific meals- requested a turkey sandwich for lunch. Pt also requests orange juice frequently, but still limits liquid consumption. Pt requested two orange juice, only drank one and fixated on putting the second one back in the fridge. This web content writer told pt to set it on the counter, in which the pt grew very agitated that he needed to specifically "place it in the fridge." Pt often sitting by door, in choi, or in common area. Pt not overly social with peers, polite when addressed but doesn't start conversation. Pt ate average of 75% of meals. He was observed every 15 minutes of shift as directed.
[2017-05-06] MEDS: risperiDONE 2 mg Tablet PO SCH (19:35)
--- NOTE | 2017-05-06 22:03 | NUR ---
NURSING NOTE [id number] Mood: "You don't think I'm gonna tonight do you?" Affect: paranoid, nervous, guarded Behavior: pt. has been pacing the halls intermittently, made frequent requests for his HS Risperdal despite it being several hrs early and being reminded of this he continued to ask for it. Declined offers of PRN medications to take in the meantime. When it came to take his HS Risperdal he wavered and expressed he fears he is going to tonight if he takes it because he had the Consta shot earlier today. Reassurance provided. He shows other signs of paranoia e.g. rubs each pill on his shirt, insists on retrieving his own drinks and tore his used medication cup apart after swallowing his medications stating "I don't want anyone knowing I took these". Thought processes: paranoid, tangential in conversation, denies SI/HI/AH/VH
--- NOTE | 2017-05-07 05:10 | NUR ---
Nursing Note Electrical Helper 11pm to 7am Pt asleep at start of shift and remained asleep for the duration of the shift. Monitored pt. with q 15 minute face checks for safety, location and accountability
[2017-05-07 07:00] VITALS: BP 108/66; PULSE 128
--- NOTE | 2017-05-07 07:12 | NUR ---
Pt in day room and fell. Pt reported he was " stretching" and fainted. Pt has not been drinking fluids sufficiently due to paranoia, despite education. Vital signs taken. Sitting 112/76 p 115, standing 92/63, p.138. Pt encouraged to drink fluids but declined. Pt does not recall if he hit his head. Reports no pain, no evidence of injury to head. No staff witnessed the fall. Incident passed onto oncoming RN.
[2017-05-07 08:25] VITALS: BP 114/73; PULSE 132; RESP 20
--- NOTE | 2017-05-07 11:29 | PCM.PNPSY ---
Subjective Date of Service May 07, 2017 Subjective I spent 30 minutes both reviewing treatment plan with our clinical team, interviewing the patient and providing supportive/educational psychotherapy. I spent more than 50% of the time counseling the patient. I reviewed the treatment plan with the him and discussed options available including the potential risks, benefits and side effects. Maicol reports feeling no paranoia and that he feels safe here on the unit. However Staff reports that he has been isolating but state that he continues to appear significantly paranoid. He is paranoid about the food the water and the people. As a result at times he gets dehydrated because he is afraid to drink the water. He is frequently gives his tray of food to other people were and he only eats food that has been wrapped. He has been participating poorly in one-to-one unit and group activities. He slept 6 hours at night but took multiple naps during the day and denies depression kong or psychotic symptoms review. He denies suicidal ideation or homicidal ideation and states there is just been a big misunderstanding. He denies medication side effects today. He did agree to restart Risperdal Consta and got his first 50 mg IM dose on 05/06/2017 He was able to identify his medications and what they were used to treat. Current Medications Current Medications Risperidone 50 mg ONCE ONCE IM Last administered on 05/06/17t 14:34; Admin Dose 50 MG; Start 05/06/17 at 12:45; Stop 05/06/17 at 13:15; Status DC Mental Status Exam Vital Signs Vital Signs Date Time Temp Pulse Resp B/P Pulse Ox O2 Delivery O2 Flow Rate FiO2 05/07/17 08:25 35.7 132 20 114/73 05/07/17 07:00 128 108/66 Appearance: Neat/well groomed Attitude: Guarded Behavior: No unusual behavior Affect: Flat Mood: Dysthymic Thought Process/Associations: Logical/Sequential, Goal Directed Speech Production: Soft Speech Rate: Normal Speech Articulation: Normal Thought Content: Negativistic, Ideas of Reference Danger to Self/Suicidal Ideati: None Danger to Others: None Delusions: Paranoid (Endorses) Hallucinations: Other (patient a poor historian and is not telling us what he is experiencing internally) Consciousness: Hyper-vigilant Orientation: Person, Place, Date, Situation Memory: Grossly Intact Estimate Intellectual Function: Below Average Basis for IQ estimate: Awareness current events, Word use/vocabulary, Educational history Attention/Concentration & Cogn: Impaired Cognitive Testing Method: Abstract Reasoning during interview, Proverb interpretation, Serial computations Insight: Limited Judgement: Limited Mental Health Plan The patient is a 26-year-old white male, who was admitted on a 72 hour involuntary treatment hold after his father brought him to the emergency department for an evaluation. He apparently had been off his Risperdal Consta for several months. He is reported to have a history of bipolar mood disorder with psychosis that appears to have been gradually manifesting itself as he has been off his medications. In addition to stopping his medications, he also has been ingesting THC which is also likely contributing to the current paranoia, delusion and disorganized thought. Client is not willing to share information or give us information to contact family at this point. As a consequence I have little understanding of the psychology or social situation. Maicol continues to struggle with symptoms of paranoia about the food water and other people on the unit. As a result he has a difficult time participating in the therapy. He received 50 mg IM Risperdal Consta yesterday. We will continue to treat him with 3 mg of Risperdal at bedtime. Patient in need of additional treatment he was court ordered to a 90 day LR +7 additional days today. [place] DIAGNOSIS: AXIS I Schizoaffective disorder. AXIS II Defer. AXIS III None. AXIS IV Unknown. AXIS V Current global assessment of functioning equal to 35. Medications Treatments Patient is being provided with a high degree of safety through our unit structure and active adult engagement provided by our mental health professionals, mental health technicians, psychiatric nurses and myself. We are focusing on developing improved coping skills and identifying stressors that may have led to current episode. We will attempt to: * Integrate into therapeutic groups, milieu and individual therapy. * Maintain in a closely monitored and structured unit * Provide low-stimulation environment * Obtain collateral data to assist in treatment planning * Assess degree of lability of affect and impulse control * Complete safety plan * Decrease frequency of relapse and need for re-hospitalization * Denies thoughts of harm to self and/or others * Establish a consistent sleep pattern * Medication effective in stabilization of mood and/or thought process * Reduce the risk of imminent harm to self and/or others by providing a safe environment * Tolerates medication without side effects Patient will be on the following psychiatric medications: Risperdal to 3 mg at bedtime Risperdal Consta 50 mg IM 2 times per month first dose 05/06/2017, next dose due 05/20/2017 Education: Educate patient about recreational drug use as an etiology Educate about metabolic etiologies related to obesity Patient's legal status 90 day LR +7 additional days entered 05/07/2017 Anticipated number of additional hospital days to achieve above goals: 7 Disposition: Home Alex Robles MD May 07, 2017 11:29
[2017-05-07 12:25] VITALS: BP 112/75; PULSE 98; RESP 16
[2017-05-07 12:27] VITALS: BP 109/69; PULSE 123
--- NOTE | 2017-05-07 15:46 | NUR ---
Car Lubricator/Counselor S/O: Patient stated that he had already spoken to the dr about not feeling suicidal. He requested help in "finding his social security payments". A: Patient has been wandering around the unit but does not interact with other patients. Highly paranoid and does not answer questions when asked. He retracts statements or states that he does not know what the meaning of something is. P: Follow care plan and coordinate with outpatient providers.
--- NOTE | 2017-05-07 18:20 | NUR ---
Observations [id number] Pt continues to be paranoid, anxious, and pacing unit. He attended court this morning, appeared uneasy and worried about outcome. Pt paced unit with papers in hand. Upon beginning of shift, pt fainted in dining room. He stated that he was stretching and then next thing he remembered was being on the ground. Pt was encouraged to drink more fluids and blood pressure checked throughout the day. Pt continues to fixate on food, only wanting to eat turkey sandwiches along with orange juice. Pt used phone a few times. He attended Community Meeting setting goal to be more open with staff and peers. Pt attended all meals, eating an average of 75%. He was observed every 15 minutes of shift as directed.
--- NOTE | 2017-05-07 18:40 | NUR ---
Nursin to 1899 S: Nurse: How did your day go? Maicol "I'm just recovering". ..."Don't want to talk about it." O: Maicol is dressed in hospital scrub attire. At 0800, he fell over backward in chair in dining room. [place] faint. Orthostatic BP's taken for sitting and standing showed drop on standing. BP at 1800 114/74, pulse 94. At meals, Maicol eats minimally. prefers things in sealed container: crackers, cereal. Drinks mainly OJ. Encouraged to drink more fluids. Maicol salks around the open unit, clutching the legal papers and the folder that was given to him at time of admission. When asked about that he replied "I don't want it to get misplaced." Has slightly staring, wide eyed, intense facial expression. Avoids any direct questioning for mental status assessment. Declined offer of med for anxiety. Comes to med station and asks what time he will receive risperdal. A: Paranoid. Anxious. Attending to internal input? P: Continue to assess for med effects. Addendum: 05/07/17 at 1856 by MYLENE MCCOY RN Amended: Links added.
[2017-05-07] MEDS: risperiDONE 2 mg Tablet PO SCH (20:05)
[2017-05-08 09:13] VITALS: BP 91/63; PULSE 138; RESP 16
--- NOTE | 2017-05-08 12:19 | NUR ---
Nursing Note [id number] Behavior S/O: Pt has fair appetite. Pt has been drinking 1 carton of orange juice with meals & at snack time. Pt states he is drinking water in his room, but this has not been observed. Pt has been holding the phone to his ear with a paper towel. When asked if he was okay (it appeared to be an ice bag), he gave me a strange look & d/n answer. Pt has tissue in his left ear only. He refuses to wear ear plugs. Out in milieu with peers. Interaction with peers is superficial & minimal. Conversation tracking clear when addressed. Pt d/n initiate conversation often. A: Pt appears to be responding to internal stimuli. P: Provide supportive environment. Monitor medications & effects.
--- NOTE | 2017-05-08 14:16 | PCM.PNPSY ---
Subjective Date of Service May 08, 2017 Subjective I spent 30 minutes both reviewing treatment plan with our clinical team, interviewing the patient and providing supportive/educational psychotherapy. I spent more than 50% of the time counseling the patient. I reviewed the treatment plan with the him and discussed options available including the potential risks, benefits and side effects. Maicol reports feeling no paranoia and that he feels safe here on the unit. However Staff reports that he has been isolating but state that he continues to appear significantly paranoid. He appears to be paranoid about the food the water and the people. As a result at times he gets dehydrated because he is afraid to drink the water. He is frequently gives his tray of food to other people were and he only eats food that has been wrapped. He has been participating better in one-to-one unit and group activities. He slept 7 hours at night and denies depression kong or psychotic symptoms review. He denies suicidal ideation or homicidal ideation and states there is just been a big misunderstanding. He denies medication side effects today. He restarted Risperdal Consta and got his first 50 mg IM dose on 05/06/2017 He was able to identify his medications and what they were used to treat Current Medications Current Medications Risperidone 2 mg HS PO Last administered on 05/07/17t 20:05; Admin Dose 2 MG; Start 05/07/17 at 21:00 Mental Status Exam Vital Signs Vital Signs Date Time Temp Pulse Resp B/P Pulse Ox O2 Delivery O2 Flow Rate FiO2 05/08/17 09:13 36.0 138 16 91/63 Appearance: Neat/well groomed Attitude: Guarded Behavior: No unusual behavior Affect: Flat Mood: Dysthymic Thought Process/Associations: Logical/Sequential, Goal Directed Speech Production: Soft Speech Rate: Normal Speech Articulation: Normal Thought Content: Negativistic, Ideas of Reference Danger to Self/Suicidal Ideati: None Danger to Others: None Delusions: Paranoid (Endorses) Hallucinations: Other (patient a poor historian and is not telling us what he is experiencing internally) Consciousness: Hyper-vigilant Orientation: Person, Place, Date, Situation Memory: Grossly Intact Estimate Intellectual Function: Below Average Basis for IQ estimate: Awareness current events, Word use/vocabulary, Educational history Attention/Concentration & Cogn: Impaired Cognitive Testing Method: Abstract Reasoning during interview, Proverb interpretation, Serial computations Insight: Limited Judgement: Limited Mental Health Plan The patient is a 26-year-old white male, who was admitted on a 72 hour involuntary treatment hold after his father brought him to the emergency department for an evaluation. He apparently had been off his Risperdal Consta for several months. He is reported to have a history of bipolar mood disorder with psychosis that appears to have been gradually manifesting itself as he has been off his medications. In addition to stopping his medications, he also has been ingesting THC which is also likely contributing to the current paranoia, delusion and disorganized thought. Client is not willing to share information or give us information to contact family at this point. As a consequence I have little understanding of the psychology or social situation. Maicol reports feeling no paranoia and that he feels safe here on the unit. However Staff reports that he has been isolating but state that he continues to appear significantly paranoid. He appears to be paranoid about the food the water and the people. As a result at times he gets dehydrated because he is afraid to drink the water. He is frequently gives his tray of food to other people were and he only eats food that has been wrapped. He has been participating better in one-to-one unit and group activities. He slept 7 hours at night and denies depression kong or psychotic symptoms review. He denies suicidal ideation or homicidal ideation and states there is just been a big misunderstanding. He denies medication side effects today. He restarted Risperdal Consta and got his first 50 mg IM dose on 05/06/2017 [place] DIAGNOSIS: AXIS I Schizoaffective disorder. AXIS II Defer. AXIS III None. AXIS IV Unknown. AXIS V Current global assessment of functioning equal to 35. Medications Treatments Patient is being provided with a high degree of safety through our unit structure and active adult engagement provided by our mental health professionals, mental health technicians, psychiatric nurses and myself. We are focusing on developing improved coping skills and identifying stressors that may have led to current episode. We will attempt to: * Integrate into therapeutic groups, milieu and individual therapy. * Maintain in a closely monitored and structured unit * Provide low-stimulation environment * Obtain collateral data to assist in treatment planning * Assess degree of lability of affect and impulse control * Complete safety plan * Decrease frequency of relapse and need for re-hospitalization * Denies thoughts of harm to self and/or others * Establish a consistent sleep pattern * Medication effective in stabilization of mood and/or thought process * Reduce the risk of imminent harm to self and/or others by providing a safe environment * Tolerates medication without side effects Patient will be on the following psychiatric medications: Risperdal to 2 mg at bedtime Risperdal Consta 50 mg IM 2 times per month first dose 05/06/2017, next dose due 05/20/2017 Education: Educate patient about recreational drug use as an etiology Educate about metabolic etiologies related to obesity Patient's legal status 90 day LR +7 additional days entered 05/07/2017 Anticipated number of additional hospital days to achieve above goals: 7 Disposition: Home Alex Robles MD May 08, 2017 14:16
--- NOTE | 2017-05-08 17:13 | NUR ---
Obs Dayshift Pt appears to be slightly improving each day, better eye contact, attempts to engage and open up some w/ peers and staff. Then at other times he is paranoid, confused, and questioning toward staff. Pt continues to wear one toilet paper ear plug, refusing our earplugs when offered. Pt makes attempts at engaging in groups at times leaving early and going to his room or sitting in the hallway watching people. Pt has asked a couple of times for juice/fluids and stated that he knows he should drink more but doesn't want to bother staff and ask for to much. Ok ADL's, Good meals and better fluids today.
--- NOTE | 2017-05-08 18:30 | NUR ---
corporate general manager/Counselor: S: "I already talked to the doctor." O: Patient slept 7.25 hours last night per staff. Patient denies S/I and H/I. He denies auditory and visual hallucinations. Depression is 0/10 and anxiety is 0/10. A: Patient is cooperative at times, guarded, flat affect, dysthymic, suspicious, paranoid, limited insight, limited judgment. P: Follow care plan, coordinate with out-patient providers.
[2017-05-08] MEDS: risperiDONE 2 mg Tablet PO SCH (19:38)
--- NOTE | 2017-05-08 19:42 | NUR ---
NURSING NOTE [id number] Mood: "good" Affect: paranoid, guarded Behavior: pt. asking frequently for his scheduled HS Risperdal (several hrs prior to its scheduled administration time) and circa 3 hrs prior to scheduled admin time he took a chair from the dining room and placed it in front of the med room so that he could seat himself to wait for the medication. He declined offers of PRN meds. He has stuffed paper tissue into his left ear, is paranoid re: food and beverages here and requests only sandwiches for mealtimes and packaged orange juice sparingly at meals. He is ritualistic w/his medication; rubbing his pill on his shirt, asking for a particular med cup and water cup. Thought processes: paranoid, reports he is feeling "fine" and did not want to answer this senior copywriter's questions re: thought content. Denied any safety concerns. Appears to be internally preoccupied.
--- NOTE | 2017-05-08 23:41 | NUR ---
Observations 1900 to 0700 Pt ate a snack. Pt is pleasant with staff but remains guarded and paranoid. Pt maintained behavioral control. Pt is currently quiet in bed. Pt respirations were observed when asleep. Staff completed 15 min close observations as ordered.
--- NOTE | 2017-05-09 05:04 | NUR ---
Nursing Noc Pt noted to engage singer songwriter in conversation that was linear but choppy with end to conversation when complete. Pt not able to hot die picker conversation when given opportunity to expand subject. No clear improvement from previous shifts appreciated. Continues to have inadequate sleep as noted as four hours broken sleep. Pt reports he has been awake all night. Continuing to monitor mood behavior and emotional state. Q15 minute safety checks performed as ordered. CP
--- NOTE | 2017-05-09 13:49 | NUR ---
Nursing Note [id number] Behavior, Psychotic Symptoms S/O: Pt's vital signs B/P-104/75, T-35.8, P-124, R-14. Pt encouraged to drink more fluids d/t dehydration. Pt stated, "No one in my family drinks water....The problem isn't dehydration. It's my sodium level going up & down. Hardy juice keeps it in balance....Something's wrong with my ear." Appetite is good. Pt con't to drink very little. Pt attends groups. Pleasant & cooperative. Conversation tracking clear & organized, but very superficial. Eye contact is poor. Affect is flat. Pt asks about medications even though he knows that he has nothing due. Refuses PRN medications. A: Pt has no insight into illness. P: Provide supportive environment. Monitor medications & effects.
[2017-05-09 14:39] VITALS: BP 104/75; PULSE 124; RESP 14
--- NOTE | 2017-05-09 15:33 | PCM.PNPSY ---
Subjective Date of Service May 09, 2017 Subjective I spent 30 minutes both reviewing treatment plan with our clinical team, interviewing the patient and providing supportive/educational psychotherapy. I spent more than 50% of the time counseling the patient. I reviewed the treatment plan with the him and discussed options available including the potential risks, benefits and side effects. Maicol reports feeling no paranoia and that he feels safe here on the unit. However Staff reports that he has been isolating but state that he continues to appear significantly paranoid. He appears to be paranoid about the food the water and the people. As a result at times he gets dehydrated because he is afraid to drink the water. He is frequently gives his tray of food to other people were and he only eats food that has been wrapped. He has been participating better in one-to-one unit and group activities. He slept 7 hours at night and denies depression kong or psychotic symptoms review. He denies suicidal ideation or homicidal ideation and states there is just been a big misunderstanding. He denies medication side effects today. He restarted Risperdal Consta and got his first 50 mg IM dose on 05/06/2017 He was able to identify his medications and what they were used to treat Current Medications Current Medications Risperidone 2 mg HS PO Last administered on 05/08/17t 19:38; Admin Dose 2 MG; Start 05/07/17 at 21:00 Mental Status Exam Vital Signs Vital Signs Date Time Temp Pulse Resp B/P Pulse Ox O2 Delivery O2 Flow Rate FiO2 05/09/17 14:39 35.8 124 14 104/75 Appearance: Neat/well groomed Attitude: Guarded Behavior: No unusual behavior Affect: Flat Mood: Dysthymic Thought Process/Associations: Logical/Sequential, Goal Directed Speech Production: Soft Speech Rate: Normal Speech Articulation: Normal Thought Content: Negativistic, Ideas of Reference Danger to Self/Suicidal Ideati: None Danger to Others: None Delusions: Paranoid (Endorses) Hallucinations: Other (patient a poor historian and is not telling us what he is experiencing internally) Consciousness: Hyper-vigilant Orientation: Person, Place, Date, Situation Memory: Grossly Intact Estimate Intellectual Function: Below Average Basis for IQ estimate: Awareness current events, Word use/vocabulary, Educational history Attention/Concentration & Cogn: Impaired Cognitive Testing Method: Abstract Reasoning during interview, Proverb interpretation, Serial computations Insight: Limited Judgement: Limited Mental Health Plan The patient is a 26-year-old white male, who was admitted on a 72 hour involuntary treatment hold after his father brought him to the emergency department for an evaluation. He apparently had been off his Risperdal Consta for several months. He is reported to have a history of bipolar mood disorder with psychosis that appears to have been gradually manifesting itself as he has been off his medications. In addition to stopping his medications, he also has been ingesting THC which is also likely contributing to the current paranoia, delusion and disorganized thought. Client is not willing to share information or give us information to contact family at this point. As a consequence I have little understanding of the psychology or social situation. Maicol reports feeling no paranoia and that he feels safe here on the unit. However Staff reports that he has been isolating but state that he continues to appear significantly paranoid. He appears to be paranoid about the food the water and the people. As a result at times he gets dehydrated because he is afraid to drink the water. He is frequently gives his tray of food to other people were and he only eats food that has been wrapped. He has been participating better in one-to-one unit and group activities. He slept 7 hours at night and denies depression kong or psychotic symptoms review. He denies suicidal ideation or homicidal ideation and states there is just been a big misunderstanding. He denies medication side effects today. He restarted Risperdal Consta and got his first 50 mg IM dose on 05/06/2017 [place] DIAGNOSIS: AXIS I Schizoaffective disorder. AXIS II Defer. AXIS III None. AXIS IV Unknown. AXIS V Current global assessment of functioning equal to 35. Medications Treatments Patient is being provided with a high degree of safety through our unit structure and active adult engagement provided by our mental health professionals, mental health technicians, psychiatric nurses and myself. We are focusing on developing improved coping skills and identifying stressors that may have led to current episode. We will attempt to: * Integrate into therapeutic groups, milieu and individual therapy. * Maintain in a closely monitored and structured unit * Provide low-stimulation environment * Obtain collateral data to assist in treatment planning * Assess degree of lability of affect and impulse control * Complete safety plan * Decrease frequency of relapse and need for re-hospitalization * Denies thoughts of harm to self and/or others * Establish a consistent sleep pattern * Medication effective in stabilization of mood and/or thought process * Reduce the risk of imminent harm to self and/or others by providing a safe environment * Tolerates medication without side effects Patient will be on the following psychiatric medications: Risperdal to 2 mg at bedtime Risperdal Consta 50 mg IM 2 times per month first dose 05/06/2017, next dose due 05/20/2017 Education: Educate patient about recreational drug use as an etiology Educate about metabolic etiologies related to obesity Patient's legal status 90 day LR +7 additional days entered 05/07/2017 Anticipated number of additional hospital days to achieve above goals: 7 Disposition: Home Alex Robles MD May 09, 2017 15:33
--- NOTE | 2017-05-09 17:22 | NUR ---
[facility] Day Shift Pt maintained behavioral control throughout the shift. Pt affect appears mostly flat, somewhat brighter when engaged with staff and peers. Pt remains internally preoccupied and continues to express paranoid delusions about family members. Pt spends most of the shift wandering the unit and occasionally resting in his room. Pt is appropriate with staff and peers when active on the unit, but is not social. Pt attended community meeting in the AM. Pt did not attend afternoon group activity. Pt has attended all meals at this time and has eaten approx 100% of all meals.
[2017-05-09] MEDS: risperiDONE 2 mg Tablet PO SCH (20:09)
--- NOTE | 2017-05-09 22:57 | NUR ---
Observations 1900 to 0700 Pt attended and participated in wrap up group. Pt ate a snack. Pts behavior remains the same; paranoid and guarded. However, pt is more friendly and makes pleasant conversation with staff. Pt maintained behavioral control and showed no signs of abnormal behavior. Staff completed 15 min close observations as ordered.
--- NOTE | 2017-05-09 23:09 | NUR ---
NURS NOTE EVENING SHIFT Mood: "I don't want to jinx myself but my mood is really good." Denies depression, anxiety. Affect: Anxious, suspicious. Behavior: Pt out in common area at start of shift, walking hallways. Engaging in self care and ADLs. Denies SI, HI. Denies ROSS PANCHAL. Thought Content/Process: "My family is doing something with my account taking money out or maybe putting money in. I'm not sure what they are doing with it. The doctor says I'm paranoid, but I think I'm just being cautious." Denies AH, VH. Denies SI, HI.
--- NOTE | 2017-05-10 01:52 | NUR ---
Nursing Noc "Can I use that for water?". Pt then takes the medication cup and dumps out the water which I provided for HS medications. Pt without insight to perceived paranoia. Discussed reported difficulty with sleep and offered PRNs, but patient continues to refuse r/t not what I'm normally suppose to use. Pt affect still presents internally preoccupied and slightly ritualistic. Continuing to monitor mood, behavior and emotional state. q15 minute safety checks throughout the shift. BHCP
--- NOTE | 2017-05-10 12:54 | NUR ---
Nursing Dayshift: S: "I'll keep that information for the doctor." O: Patient unwilling to share information about AH/VH with this staff nurse. Has been hanging around the nurses station today. Acknowledges anxiety and depression though no rating. Shook head when asked about harmful thoughts towards himself or anyone else. Good appetite at meals. Minimal interaction with peers. A: Aloof. Paranoia. P: CPOC. Monitor mood and behavior.
--- NOTE | 2017-05-10 14:24 | PCM.PNPSY ---
Subjective Date of Service May 10, 2017 Subjective I spent 30 minutes both reviewing treatment plan with our clinical team, interviewing the patient and providing supportive/educational psychotherapy. I spent more than 50% of the time counseling the patient. I reviewed the treatment plan with the him and discussed options available including the potential risks, benefits and side effects. Maicol reports feeling no paranoia and that he feels safe here on the unit. However Staff reports that he has been isolating but state that he continues to appear significantly paranoid. He appears to be paranoid about the food the water and the people. As a result at times he gets dehydrated because he is afraid to drink the water. He is frequently gives his tray of food to other people were and he only eats food that has been wrapped. He has been participating better in one-to-one unit and group activities. He slept 7 hours at night and denies depression kong or psychotic symptoms review. He denies suicidal ideation or homicidal ideation and states there is just been a big misunderstanding. He denies medication side effects today. He restarted Risperdal Consta and got his first 50 mg IM dose on 05/06/2017 Mental Status Exam Appearance: Neat/well groomed Attitude: Guarded Behavior: No unusual behavior Affect: Flat Mood: Dysthymic Thought Process/Associations: Logical/Sequential, Goal Directed Speech Production: Soft Speech Rate: Normal Speech Articulation: Normal Thought Content: Negativistic, Ideas of Reference Danger to Self/Suicidal Ideati: None Danger to Others: None Delusions: Paranoid (Endorses) Hallucinations: Other (patient a poor historian and is not telling us what he is experiencing internally) Consciousness: Hyper-vigilant Orientation: Person, Place, Date, Situation Memory: Grossly Intact Estimate Intellectual Function: Below Average Basis for IQ estimate: Awareness current events, Word use/vocabulary, Educational history Attention/Concentration & Cogn: Impaired Cognitive Testing Method: Abstract Reasoning during interview, Proverb interpretation, Serial computations Insight: Limited Judgement: Limited Mental Health Plan The patient is a 26-year-old white male, who was admitted on a 72 hour involuntary treatment hold after his father brought him to the emergency department for an evaluation. He apparently had been off his Risperdal Consta for several months. He is reported to have a history of bipolar mood disorder with psychosis that appears to have been gradually manifesting itself as he has been off his medications. In addition to stopping his medications, he also has been ingesting THC which is also likely contributing to the current paranoia, delusion and disorganized thought. Client is not willing to share information or give us information to contact family at this point. As a consequence I have little understanding of the psychology or social situation. Maicol reports feeling no paranoia and that he feels safe here on the unit. However Staff reports that he has been isolating but state that he continues to appear significantly paranoid. He appears to be paranoid about the food the water and the people. As a result at times he gets dehydrated because he is afraid to drink the water. He is frequently gives his tray of food to other people were and he only eats food that has been wrapped. He has been participating better in one-to-one unit and group activities. He slept 7 hours at night and denies depression kong or psychotic symptoms review. He denies suicidal ideation or homicidal ideation and states there is just been a big misunderstanding. He restarted Risperdal Consta and got his first 50 mg IM dose on 05/06/2017 [place] DIAGNOSIS: AXIS I Schizoaffective disorder. AXIS II Defer. AXIS III None. AXIS IV Unknown. AXIS V Current global assessment of functioning equal to 35. Medications Treatments Patient is being provided with a high degree of safety through our unit structure and active adult engagement provided by our mental health professionals, mental health technicians, psychiatric nurses and myself. We are focusing on developing improved coping skills and identifying stressors that may have led to current episode. We will attempt to: * Integrate into therapeutic groups, milieu and individual therapy. * Maintain in a closely monitored and structured unit * Provide low-stimulation environment * Obtain collateral data to assist in treatment planning * Assess degree of lability of affect and impulse control * Complete safety plan * Decrease frequency of relapse and need for re-hospitalization * Denies thoughts of harm to self and/or others * Establish a consistent sleep pattern * Medication effective in stabilization of mood and/or thought process * Reduce the risk of imminent harm to self and/or others by providing a safe environment * Tolerates medication without side effects Patient will be on the following psychiatric medications: Risperdal to 2 mg at bedtime Risperdal Consta 50 mg IM 2 times per month first dose 05/06/2017, next dose due 05/20/2017 Education: Educate patient about recreational drug use as an etiology Educate about metabolic etiologies related to obesity Patient's legal status 90 day LR +7 additional days entered 05/07/2017 Anticipated number of additional hospital days to achieve above goals: Plan would be to discharge after his 7 days on and LR O Disposition: Home Alex Robles MD May 10, 2017 14:24
[2017-05-10 15:36] VITALS: BP 95/62; PULSE 91; RESP 16
--- NOTE | 2017-05-10 19:03 | NUR ---
[facility] Day Shift Pt maintained behavioral control throughout the shift. Pt affect appears mostly flat, somewhat brighter when engaged with staff and peers. Pt remains internally preoccupied and continues to express paranoid delusions about family members. Pt spends most of the shift wandering the unit and occasionally resting in his room. Pt is appropriate with staff and peers when active on the unit, but is not social. Pt attended afternoon group activities, participating passively. Pt has attended all meals at this time and has eaten approx 100% of all meals.
[2017-05-10] MEDS: risperiDONE 2 mg Tablet PO SCH (20:12)
--- NOTE | 2017-05-11 05:26 | NUR ---
Nursing Note Client Technologies Analyst 7pm to 7am Pt pacing the unit and lingering around the nursing station at the beginning of shift. Preoccupied about having to still take po risperidone after receiving a long acting injection last week. Informed pt. that this is not unusual and encouraged him to speak to his doctor about it in the a.m. Pts affect constricted, mood guarded, denies A/VH and when asked him to rate his depression and anxiety he asked Why do you want to know that? And chose not to provide a response to the question. Pt took HS medications without issue and went to bed at 2145 but woke up multiple times throughout the night. Monitored pt. with q 15 minutes face checks for safety, location and accountability.
[2017-05-11 09:00] VITALS: BP 99/67; PULSE 108; RESP 16
--- NOTE | 2017-05-11 10:52 | NUR ---
7-3 nursing note S/O-Pt. has been hanging around nursing unit making odd remarks. "I am not going to drink alcohol while I am here." He has a flat affect and is easily redirected. He denies depression, anxiety, hallucinations or SI. He likes to wander up and down the hallways watching activities. He appears internally preoccupied. He has a good appetite and stays on the periphery of groups. he has indirect eye contact. A-Psychosis. P-Monitor for safety per protocol. Assess efficacy of meds to manage target sxs. Encourage engagement in groups.
[2017-05-11 12:19] VITALS: BP 109/68; PULSE 112
--- NOTE | 2017-05-11 15:54 | NUR ---
Animal Anatomist/Counselor S:"I"m feeling too self aware." O: Patient denies any SI or HI, no AVH, no anxiety or depression. A: Patient stated that he feels normal but also too self aware. Continues to pace the unit with his belongings. His affect is flat and he is paranoid and confused. He inquired about his discharge date. P: Follow care plan and coordinate with outpatient providers.
--- NOTE | 2017-05-11 17:47 | NUR ---
Observations 0700 to 1900 Pt attended community meeting. Pt ate a snack, though not witnessed as he goes to room with food despite staff asking him not to. Pt wears paper toilet in ears and refuses ear plugs. He also carries a blank paper and towel around that he says is to go home with his dad. Pt maintained behavioral control. Breakfast: unknown. Lunch: unknown. Staff completed 15 min close observations as ordered.
--- NOTE | 2017-05-11 20:13 | PCM.PNPSY ---
Subjective Date of Service May 11, 2017 Subjective The patient asked when he would meet with this hand sign writer several times and when we met discussed the reason that he had missed medications for six months was that his phone was on airplane mode. He also talked about his fear that his family was putting medication in the food (and still is concerned about this enough to plan to cook all of his own food). He also reported that his father was "writing prayers on paper" and he was concerned about returning home due to his parents "partying." He also reported that cigarettes and butts tasted like "fish sauce or sesame oil" and therefore thought that medication was in them as well. Denies current medication side effects. Sleep: light sleeper Appetite: only eating sandwiches Suicidal and homicidal ideation: denies Auditory hallucinations:denies but states that he is "too self aware" Visual hallucinations: denies Other Psychotic Symptoms: see above Anxiety/Depression: "more of excitement" Mental Status Exam Vital Signs Vital Signs Date Time Temp Pulse Resp B/P Pulse Ox O2 Delivery O2 Flow Rate FiO2 05/11/17 12:19 112 109/68 Appearance: Neat/well groomed Attitude: Guarded Behavior: No unusual behavior Affect: Flat Mood: Dysthymic Thought Process/Associations: Circumstantial Speech Production: Normal Speech Rate: Normal Speech Articulation: Normal Thought Content: Negativistic, Ideas of Reference, Perseveration Danger to Self/Suicidal Ideati: None Danger to Others: None Delusions: Paranoid (Endorses) Hallucinations: Auditory (Denies), Visual (Denies), Other (Still referring to delusions which occurred prior to admission.) Consciousness: Hyper-vigilant Orientation: Person, Place, Date, Situation Memory: Grossly Intact Estimate Intellectual Function: Average Basis for IQ estimate: Awareness current events, Word use/vocabulary, Educational history Attention/Concentration & Cogn: Impaired Cognitive Testing Method: Abstract Reasoning during interview, Proverb interpretation, Serial computations Insight: Limited Judgement: Limited Mental Health Plan The patient is a 26-year-old white male, who was admitted on a 72 hour involuntary treatment hold after his father brought him to the emergency department for an evaluation. He apparently been off his Risperdal Consta for several months. He reported to have a history of bipolar mood disorder with psychosis or schizoaffective disorder that appears to have been gradually manifesting itself as he has been off his medications. In addition to stopping his medications, he also has been ingesting THC which is also likely contributing to the current paranoia, delusion and disorganized thought. The patient is taking risperidone 2mg and has taken the Consta injection but seems to have difficulty understanding the need to remain on oral while the injection stabilizes. Given his current state, he would need to be closely supervised on discharge. [place] AXIS I Schizoaffective disorder. AXIS II Defer. AXIS III None. AXIS IV Unknown. AXIS V Current global assessment of functioning equal to 30. Medications Treatments 1. The patient is admitted to the inpatient unit and will be provided a safe and secure environment. 2. The patient is denying current active suicidality and is not in need of a one-to-one at this time. 3. The patient is encouraged to participate with group and milieu activities. 4. The patient will be seen by the treatment team on a daily basis to assess symptoms, side effects and response to treatment. 5. Risperdal to 2 mg at bedtime 6. Risperdal Consta 50 mg IM 2 times per month first dose 05/06/2017, next dose due 05/20/2017 7. Patient received 90 day LR +7 additional days entered 05/07/2017 8. Anticipated discharge 05/14/17 though may require extension Vic Lopez MD May 11, 2017 20:12 Education: Educate patient about recreational drug use as an etiology Educate about metabolic etiologies related to obesity Patient's legal status 90 day LR +7 additional days entered 05/07/2017 Anticipated number of additional hospital days to achieve above goals: Plan would be to discharge after his 7 days on and LR O Disposition: Home Vic Lopez MD May 11, 2017 20:12
[2017-05-11] MEDS: risperiDONE 2 mg Tablet PO SCH (20:20)
--- NOTE | 2017-05-11 23:38 | NUR ---
Nurses Note Evening "Should I take a shower in the morning?" Is it OK to drink orange juice?" Patient has remained out of his room standing at the nurses station making odd comments unrelated to topic of conversations. He remains preoccupied internally with outward paranoid remarks. Patient has been medication compliant without adverse effects,continue q 15min. checks for safety and support. Addendum: 05/11/17 at 6647 by DEANNE DYKES RN Amended: Links added.
--- NOTE | 2017-05-12 03:16 | NUR ---
nursing, nights, 11-7 s/o- has appeared to sleep after 2214 during q 15 minute assessments. a- improved sleep, no apparent distress. p- monitor behavior/emotional state, quality, times and amount of sleep, use and effect of medication. muna Addendum: 05/12/17 at 0505 by IBETH MORALES RN s- thanks for the orange juice. no i'll be ok. i'll be able to get back to sleep. o- up at 0400 for some juice. appeared to sleep after 0430. a- less paranoid. p- monitor. muna
[2017-05-12 07:50] VITALS: BP 97/64; PULSE 86; RESP 20
--- NOTE | 2017-05-12 17:44 | NUR ---
Observations [id number] Pt continues to be extremely paranoid and restless, pacing the unit much of the day clutching paperwork in his hand. Pt was observed sitting near exits, or at end of the choi. Pt continues to be very focused on food, eating sandwiches for most meals aside from breakfast. Pt did eat 100% of meals. He has difficulties making decisions and is fixated on preforming tasks in his own way, such as making sure to grab his own juice from the fridge verses staff attempting to give him one. Pt did not shower, did attend Community Meeting and set goal. Pt's family called but he still refuses to speak to them. Pt made comment to this advertising copy writer that he feels he is "losing his mind at times." Pt was observed every 15 minutes of shift as directed.
[2017-05-12] MEDS: risperiDONE 2 mg Tablet PO SCH (19:50)
--- NOTE | 2017-05-12 21:37 | PCM.PNPSY ---
Subjective Date of Service May 12, 2017 Subjective Patient reported that he was "good" but was concerned that one of the peers was "blaming me" for invading peer's personal space. Discussed with patient ways to reduce intrusive behaviors. Patient then focused on his "progression of my health." He reported feeling overstimulated and while he denied AH he reported hearing a noise or ringing in his ear that originated from the neighbors and then would bounce back and forth between the houses. Discussed that this was not consistent with tinnitus and more with hallucinations, patient then added, "just ignore what I said, don't write it down." Discussed need for increased dose of risperidone but patient declining. Patient reports family are willing to have him return in his current state. Denies current medication side effects. Sleep: 6.5 hours Appetite: "would like to eat hot food" but only eating sandwiches but will not say why Suicidal and homicidal ideation: denies Auditory hallucinations: see above Visual hallucinations: denies Other Psychotic Symptoms: see above Anxiety: "pretty scared" Depression: 0/10 Mental Status Exam Appearance: Neat/well groomed Attitude: Guarded Behavior: No unusual behavior Affect: Flat Mood: Dysthymic Thought Process/Associations: Circumstantial Speech Production: Normal Speech Rate: Normal Speech Articulation: Normal Thought Content: Negativistic, Ideas of Reference, Perseveration Danger to Self/Suicidal Ideati: None Danger to Others: None Delusions: Paranoid (Endorses) Hallucinations: Auditory (Denies), Visual (Denies), Other (Still referring to delusions which occurred prior to admission.) Consciousness: Hyper-vigilant Orientation: Person, Place, Date, Situation Memory: Grossly Intact Estimate Intellectual Function: Average Basis for IQ estimate: Awareness current events, Word use/vocabulary, Educational history Attention/Concentration & Cogn: Impaired Cognitive Testing Method: Abstract Reasoning during interview, Proverb interpretation, Serial computations Insight: Limited Judgement: Limited Mental Health Plan The patient is a 26-year-old white male, who was admitted on a 72 hour involuntary treatment hold after his father brought him to the emergency department for an evaluation. He apparently been off his Risperdal Consta for several months. He reported to have a history of bipolar mood disorder with psychosis or schizoaffective disorder that appears to have been gradually manifesting itself as he has been off his medications. In addition to stopping his medications, he also has been ingesting THC which is also likely contributing to the current paranoia, delusion and disorganized thought. The patient is taking risperidone 2mg and has taken the Consta injection but seems to have difficulty understanding the need to remain on oral while the injection stabilizes. Patient is declining further increase then gradual taper in oral risperidone. Given his current state, he would need to be closely supervised on discharge or may need additional time for stabilization. [place] AXIS I Schizoaffective disorder. AXIS II Defer. AXIS III None. AXIS IV Unknown. AXIS V Current global assessment of functioning equal to 30. Medications Treatments 1. The patient is admitted to the inpatient unit and will be provided a safe and secure environment. 2. The patient is denying current active suicidality and is not in need of a one-to-one at this time. 3. The patient is encouraged to participate with group and milieu activities. 4. The patient will be seen by the treatment team on a daily basis to assess symptoms, side effects and response to treatment. 5. Risperdal to 2 mg at bedtime 6. Risperdal Consta 50 mg IM 2 times per month first dose 05/06/2017, next dose due 05/20/2017 7. Patient received 90 day LR +7 additional days entered 05/07/2017 8. Anticipated discharge 05/14/17 though may require extension Vic Lopez MD May 12, 2017 21:37
--- NOTE | 2017-05-12 22:59 | NUR ---
Nurses Note evening Patient has not been out on the unit as much today. He has been observed sitting at the end of the hallway alone or sitting at the medication room door with his head in his hand. Patient denied troubled thoughts or voices. He has not been eating prepared meals preferring only sandwiches. Patient reports to staff if he drinks water from the filtered machine as he generally drinks only from sealed containers. Overall,patient remains highly guarded and uncomfortable when on the unit with others. Will continue to make frequent contact,reality test as tolerated,encourage medication compliance. Addendum: 05/12/17 at 2315 by DEANNE DYKES RN Amended: Links added.
--- NOTE | 2017-05-13 07:25 | NUR ---
Nursing Note Sample Washer 11pm to 7am Pt asleep at start of shift and remained asleep for the duration. No issues observed or reported. Monitored pt with q 15 minute face checks for safety, location, and accountability
[2017-05-13 07:58] VITALS: BP 104/74; PULSE 91; RESP 18
--- NOTE | 2017-05-13 14:54 | NUR ---
Nursing Noc Pt walking hallway most of the shift. He presents as disorganized in thought with odd statements and indecisive in his decisions. Presents as guarded and cautious when speaking with staff. Pt continues to eat and drink only certain items. He is visible on the unit and participated in community meeting. Taking medication as prescribed. Continue with POC and provide support as needed.
--- NOTE | 2017-05-13 15:43 | NUR ---
Electrolysis Engineer/Counselor S:"I don't want to acknowledge my psychic ability." O: Patient denies any SI or HI, no AVH, no depression and just feels a nervous excitement but no anxiety. A: Patient was paranoid and suspicious. He states that there are psychic abilities on his father's side and that he brushes with flouride in order to combat those abilities. He would like to be discharged. His father needs to verify that he is able to return to the home. P: Follow care plan and coordinate with outpatient providers.
--- NOTE | 2017-05-13 16:18 | NUR ---
spiritual care: pt request conversational visit in piano room. pt guarded, tearful, anxious. Spoke of his father, working for his father and devotion/appreciation of family. He did not answer any leading questions directly and was difficult for me to understand. Pt asked childlike questions about prayer and chapel space and seemed especially concerned with the location of the hospital chapel where he said he would like to go when he is discharged--for prayer. Pt mentioned his religion background, seemed to find some comfort in the classic prayers of the yazidi. He asked for prayer time and led several prayers, commenting about odd things, for example, not wanting to pray over gold (my wedding band).
[2017-05-13] MEDS ORDERED: risperiDONE 2 mg Tablet PO SCH (20:00)
--- NOTE | 2017-05-13 22:36 | PCM.PNPSY ---
Subjective Date of Service May 13, 2017 Subjective Patient is now concerned about cost of potential lab draws on discharge. Patient also requests that outpatient appointment be between 11-12 when he receives his injection but will not clarify why this is important. Patient requests risperidone be moved to 8pm. He reports that he is not concerned about returning home but does not want father to visit him before discharge. Denies current medication side effects. Sleep: 8 hours Appetite: "would like to eat hot food" but only eating sandwiches but will not say why Suicidal and homicidal ideation: denies Auditory hallucinations: denies Visual hallucinations: denies Other Psychotic Symptoms: see above Anxiety: "nervous excitement about what's going to happen" Depression: 0/10 Current Medications Current Medications Risperidone 2 mg DAILY@20 PO Last administered on 05/13/17t 20:03; Admin Dose 2 MG; Start 05/13/17 at 20:00 Mental Status Exam Appearance: Neat/well groomed Attitude: Guarded Behavior: No unusual behavior Affect: Flat Mood: Dysthymic Thought Process/Associations: Circumstantial Speech Production: Normal Speech Rate: Normal Speech Articulation: Normal Thought Content: Negativistic, Ideas of Reference, Perseveration Danger to Self/Suicidal Ideati: None Danger to Others: None Delusions: Paranoid (Endorses) Hallucinations: Auditory (Denies), Visual (Denies) Consciousness: Hyper-vigilant Orientation: Person, Place, Date, Situation Memory: Grossly Intact Estimate Intellectual Function: Average Basis for IQ estimate: Awareness current events, Word use/vocabulary, Educational history Attention/Concentration & Cogn: Impaired Cognitive Testing Method: Abstract Reasoning during interview, Proverb interpretation, Serial computations Insight: Limited Judgement: Limited Mental Health Plan The patient is a 26-year-old white male, who was admitted on a 72 hour involuntary treatment hold after his father brought him to the emergency department for an evaluation. He apparently been off his Risperdal Consta for several months. He reported to have a history of bipolar mood disorder with psychosis or schizoaffective disorder that appears to have been gradually manifesting itself as he has been off his medications. In addition to stopping his medications, he also has been ingesting THC which is also likely contributing to the current paranoia, delusion and disorganized thought. The patient is taking risperidone 2mg and has taken the Consta injection but seems to have difficulty understanding the need to remain on oral while the injection stabilizes. Patient is declining further increase then gradual taper in oral risperidone. Given his current state, he would need to be closely supervised on discharge or may need additional time for stabilization. [place] AXIS I Schizoaffective disorder. AXIS II Defer. AXIS III None. AXIS IV Unknown. AXIS V Current global assessment of functioning equal to 30. Medications Treatments 1. The patient is admitted to the inpatient unit and will be provided a safe and secure environment. 2. The patient is denying current active suicidality and is not in need of a one-to-one at this time. 3. The patient is encouraged to participate with group and milieu activities. 4. The patient will be seen by the treatment team on a daily basis to assess symptoms, side effects and response to treatment. 5. Risperdal to 2 mg at bedtime 6. Risperdal Consta 50 mg IM 2 times per month first dose 05/06/2017, next dose due 05/20/2017 7. Patient received 90 day LR +7 additional days entered 05/07/2017 8. Anticipated discharge 05/14/17 family reportedly willing to have patient return home. Vic Lopez MD May 13, 2017 22:36
--- NOTE | 2017-05-13 23:29 | NUR ---
NURS NOTES EVENING "Tell the doctor that I'm going to be my own man when I discharge tomorrow." Denies AH, VH. Denies SI, HI. Appears paranoid and internally preoccupied. Pt reports that his father has said he can come home. Pt expresses that he does not want his family to come in for a family meeting. Med-compliant.
--- NOTE | 2017-05-13 23:55 | NUR ---
NOC OBS [id number] Pt out on unit most of evening. Very anxious and perseverating on discharge and caring for others. When staff tried to redirect him to change focus from what was making him "feel ill", such as medications being given, with talking to him and trying to discuss thought redirection or participating in other activities he enjoyed such as drawing he would begin to smile an then get frustrated and ask for staff to not make him smile. When asked why and what he thought this did to him he made motions and verbalized his brain exploding. Pacing and restless on unit until asleep at 2300. Observed Q15 as ordered.
--- NOTE | 2017-05-14 07:10 | NUR ---
Nursing Note Urban Anthropologist 11pm to 7am Pt asleep at start of shift and slept through the night uninterrupted. Monitored pt. with q 15 minute face checks for safety, location and accountability.
--- NOTE | 2017-05-14 11:30 | PCM.DIMED ---
Discharge Instructions Date of Service May 14, 2017 Dates of Hospitalization Apr 30, 2017 at 22:08 Discharge Diagnosis Discharge Diagnosis AXIS I Schizoaffective disorder. AXIS II Defer. AXIS III None. AXIS IV Unknown. AXIS V Current global assessment of functioning equal to 40. Medication Instructions Additional med instructions Your provider may want to increase your oral risperidone while you stabilize on the Consta injections. Your provider will reduce or discontinue oral risperidone when they believe it is appropriate to do so. Test Results Test Results CBC Test 04/30/17 16:12 White Blood Count 7.5th/mm3 (3.8-10.1) Red Blood Count 4.81mil/mm3 (4.40-5.80) Hemoglobin 15.1g/dL (13.8-17.2) Hematocrit 44.1% (41.0-50.0) Mean Corpuscular Volume 91.7fL (81-100) Mean Corpuscular Hemoglobin 31.4pg (27.0-35.0) Mean Corpuscular Hemoglobin Concent 34.2% (32.0-37.0) Red Cell Distribution Width 13.5% (12.3-15.4) Platelet Count 197bil/L (150-400) Neutrophils (%) (Auto) 61.0% (40-74) Lymphocytes (%) (Auto) 21.6% (14-46) Monocytes (%) (Auto) 13.4% (4-12) Eosinophils (%) (Auto) 2.8% (0-5) Basophils (%) (Auto) 0.9% (0-3) CMP Test 04/30/17 16:12 Sodium Level 140mEq/L Potassium Level 3.7mEq/L Chloride Level 102mEq/L Carbon Dioxide Level 21mmol/L Blood Urea Nitrogen 5mg/dL Creatinine 0.77mg/dL Estimat Glomerular Filtration Rate 131mL/min Glucose Level 107mg/dL Calcium Level 9.6mg/dL Total Bilirubin 0.4mg/dL Aspartate Amino Transf (AST/SGOT) 26U/L Alanine Aminotransferase (ALT/SGPT) 26U/L Alkaline Phosphatase 59U/L Total Protein 7.5g/dL Albumin 4.5g/dL Thyroid Stimulating Hormone (TSH) 1.580uIU/mL Urine Drug screen from 04/30/17 1620 was positive for marijuana (THC) Diet Discharge Diet: No restrictions Activity Discharge Activity: No restrictions Patient Instructions Patient Instructions Should you have any thoughts of harming yourself or others, please call the crisis line, your provider, 911, or go to the nearest Emergency Department. Do not change or discontinue your medications without discussing with your provider. You have been given a prescription for 30 days supply of your new medication Follow-up plan Director Apparel Justyna Ventura 05/20/17 3pm [facility] [address] [place] [address] Bradshaw on 05/20/17 at 1045am [facility] [address] [place] [address] Vic Lopez MD May 14, 2017 11:30
[2017-05-14] MEDS ORDERED: RISP2TAB21 PO (11:34)
[2017-05-14] MEDS ORDERED: RISP50DI IM (11:34)
--- NOTE | 2017-05-14 13:49 | NUR ---
Discharge Pt discharged @1340. He signed FRANCISCA for [facility], discharge instructions & patient checklist and patient instructions signature page. He refused to sign all other discharge paperwork stating "I don't need or want that. I don't want to sign it. I don't want to sign over power of managing attorney to my father. I don't want my father's name on any paperwork. Addendum: 05/14/17 at 1426 by MARY PAYNE RN Pt signed for belongings and requesting to leave by 1:30pm. His plan was to walk to the bus station. Father called by case management and notified of his discharge.
--- NOTE | 2017-05-14 14:02 | NUR ---
Game Breeding Farm Manager/Counselor S/O: Patient has been anxious all morning to discharge and stated that the anxiety was from excitement. He denied any SI or HI, no AVH, but reported a ringing in his ear. No depression. A: Patient was discharged at 1340, and it was verified with his father that he was able to return to the home upon discharge. Patient insisted on taking the bus home so he could "enjoy some fresh air". Patient's father stated that the patient expressed a desire to buy some new clothes, and agreed it would be best to have the patient return home first. Patient has follow up appts scheduled at [facility] on saturday, May 20, both with his PCP as well as his Game Breeding Farm Manager, Justyna Ventura. He will receive his next scheduled shot of Risperdal on saturday, May 20. Patient has been provided with all necessary discharge paperwork but has refused to sign discharge papers. P: Follow discharge plan.
--- NOTE | 2017-05-14 23:47 | PCM.DC.MED ---
Discharge Summary Date of Service May 14, 2017 Dates of Hospitalization Date of Hospital Admission Apr 30, 2017 at 22:08 Date of Discharge: May 14, 2017 Providers: Admitting Physician: Alex Robles MD Primary Care Physician: Genet Attending Physician: Alex Robles MD Diagnosis at Time of Discharge Diagnosis at Time of Discharge AXIS I Schizoaffective disorder. AXIS II Defer. AXIS III None. AXIS IV Unknown. AXIS V Current global assessment of functioning equal to 40. Brief History Per Dr. Alex Robles's note from 05/01/17: IDENTIFICATION: Client is a 26-year-old white male with reported history of bipolar mood disorder with psychosis. He is reportedly living with his father and his father 's girlfriend for the past year and a half. Prior to that he was living with his biological mother in [facility]. Client reports he is on disability and lives in [place]. REASON FOR ADMISSION: Client reports "I was tricked." Hospital reports that the client had been off of his IM neuroleptic for months and was having increasing threatening behaviors , delusions and disorganization. HISTORY OF PRESENT ILLNESS: The patient presents today on a 72 hour involuntary treatment hold from the emergency department for evaluation and treatment of psychosis. I met with him for a 60 minute evaluation and reviewed course and records kept by [facility]. Client's main issue is psychosis. The condition has reportedly been present for several years and at present is of a severe intensity manifesting with paranoid delusions, flight of ideas, poor insight and threatening behaviors. It was reportedly made worse by client not taking his bimonthly shot of Risperdal Consta since September 2016. Since that time, he has apparently been having a slow but gradual recurrence of an acute psychotic episode. It also appears to be made worse by interpersonal relationship conflicts. He currently describes his active conflicts between his father and his father's girlfriend. He reports that the symptoms are improved when he takes Risperdal on a regular basis. He is currently presenting with signs of marked impairment in reality testing, judgment, insight and coping. Cognitively he appears to be intact. He is having a very difficult time with impulse control. Client categorically denied psychiatric review of systems or physical review of systems. However, the client is here in an involuntary basis and believes that anything he says can and will be used against him in a court of law. As a result, he is a very poor historian. Hospital Course The patient was restarted on oral risperidone 2mg po nightly and received his first dose of Risperdal Consta 50mg IM on 05/06/17. The patient received a 90 day LRO with 7 days of inpatient treatment which on 05/14/17. The patient declined to increase his oral dose of medication and although he made improvement during this hospital stay he remained paranoid regarding food and the actions of others. For example he was concerned that we were trying to obtain a guardianship when he was asked to sign papers which stated, "patient or guardian." On the same set of paperwork he crossed out Crisis Line and wrote 911 as he had concerns about members of the crisis line. Given the required filing times there was insufficient time to file an extension, the patient was demanding discharge, there was no new change in condition and he was denying suicidal or homicidal ideation and had a family that was willing to have him return home. At the time of discharge, the patient was reporting his mood was "excited." He reported concern about what drugs (marijuana) were in his bloodstream on admission. He reported that after discharge he planned to help his father and to make meals for the family to show his appreciation. Sleep 6+ hours per staff. Appetite was reported as "staying healthy." His anxiety was reported as "excitement level 5/10." He denied auditory or visual hallucinations and any thought, intent or plan of hurting himself or others. He endorsed various paranoid themes as above. He denied medication side effects. Exam Vital Signs (Last) Date Time Temp Pulse Resp B/P Pulse Ox O2 Delivery O2 Flow Rate FiO2 05/13/17 07:58 36.0 91 18 104/74 Exam Discharge Mental Status Exam Appearance: Neat/casually groomed Attitude: Guarded Behavior: Perseverating on discharge Affect: Flat Mood: Dysthymic Thought Process/Associations: Circumstantial Speech Production: Normal Speech Rate: Normal Speech Articulation: Normal Thought Content: Negativistic, Ideas of Reference, Perseveration, Paranoia Danger to Self/Suicidal Ideation: None Danger to Others: None Delusions: Paranoid (Endorses) Hallucinations: Auditory (Denies), Visual (Denies) Consciousness: Hyper-vigilant Orientation: Person, Place, Date, Situation Memory: Grossly Intact Estimate Intellectual Function: Average Basis for IQ estimate: Awareness current events, Word use/vocabulary, Educational history Attention/Concentration & Cognition: Impaired Insight: Limited Judgement: Limited Test 04/30/17 16:12 04/30/17 16:20 White Blood Count 7.5th/mm3 (3.8-10.1) Red Blood Count 4.81mil/mm3 (4.40-5.80) Hemoglobin 15.1g/dL (13.8-17.2) Hematocrit 44.1% (41.0-50.0) Mean Corpuscular Volume 91.7fL (81-100) Mean Corpuscular Hemoglobin 31.4pg (27.0-35.0) Mean Corpuscular Hemoglobin Concent 34.2% (32.0-37.0) Red Cell Distribution Width 13.5% (12.3-15.4) Platelet Count 197bil/L (150-400) Neutrophils (%) (Auto) 61.0% (40-74) Lymphocytes (%) (Auto) 21.6% (14-46) Monocytes (%) (Auto) 13.4% (4-12) Eosinophils (%) (Auto) 2.8% (0-5) Basophils (%) (Auto) 0.9% (0-3) Sodium Level 140mEq/L (134-144) Potassium Level 3.7mEq/L (3.5-5.2) Chloride Level 102mEq/L (97-108) Carbon Dioxide Level 21mmol/L (18-29) Blood Urea Nitrogen 5mg/dL (6-20) Creatinine 0.77mg/dL (0.76-1.27) Estimat Glomerular Filtration Rate 131mL/min (>59) Glucose Level 107mg/dL (60-99) Calcium Level 9.6mg/dL (8.5-10.1) Total Bilirubin 0.4mg/dL (0.0-1.2) Aspartate Amino Transf (AST/SGOT) 26U/L (0-50) Alanine Aminotransferase (ALT/SGPT) 26U/L (0-44) Alkaline Phosphatase 59U/L (25-150) Total Protein 7.5g/dL (6.4-8.4) Albumin 4.5g/dL (3.4-5.0) Thyroid Stimulating Hormone (TSH) 1.580uIU/mL (0.450-4.500) Hold Urine Received (Received) Discharge Medications Discharge Medications Risperidone (Risperdal) 2 Mg Tablet 2 MG PO DAILY@20 Prescribed by: BOUBACAR LOPEZ MD Risperidone Microspheres (Risperdal Consta) 50 Mg/2 Ml Syringe 50 MG IM Q14D Next doses due 05/20/17 and 06/03/17 Prescribed by: BOUBACAR LOPEZ MD Additional med instructions Your provider may want to increase your oral risperidone while you stabilize on the Consta injections. Your provider will reduce or discontinue oral risperidone when they believe it is appropriate to do so. Followup Plan Disposition: The patient was released from his inpatient hold on a 90 day LRO with inpatient time that on 05/14/17. He declined voluntary hospitalization and there was no grounds for referral to [facility] as he was denying suicidal or homicidal ideation, agreeing to take medication and had family will to have him return home. The patient verbally consented to take the prescribed medications. The patient verbally expressed understanding of the risks, benefits, alternative treatment options, and risks of not taking the prescribed medication. The patient verbally expressed understanding of the medication instructions, that he will adhere to the prescribed medication, and that he will go to all aftercare scheduled appointments. Follow-up plan Mental Retardation Nurse Justyna Ventura 05/20/17 3pm [facility] [address] [place] [address] Bradshaw on 05/20/17 at 1045am [facility] [address] [place] [address] Discharge Diet: No restrictions Discharge Activity: No restrictions Patient Instructions Should you have any thoughts of harming yourself or others, please call the crisis line, your provider, 911, or go to the nearest Emergency Department. Do not change or discontinue your medications without discussing with your provider. You have been given a prescription for 30 days supply of your new medication Boubacar Lopez MD May 14, 2017 22:18
== END 2017-05-14 13:40 | disposition home or self-care (01) | DRG 885 ==
LOC: SED 15:22 → MHC 22:08
PROVIDERS: ADMIT Psychiatry & Neurology Psychiatry; ATTEND Psychiatry & Neurology Psychiatry
DX: F25.9 Schizoaffective disorder, unspecified (principal)